=== PATIENT | male | born 1960 | race Caucasian/White ===

== ENCOUNTER 2017-03-26 12:17 | Emergency (ER) | payer OTHER ==
[2017-03-26] MEDS ORDERED: Zofran 4 MG/2 ML VIAL IV ONE (12:34)
[2017-03-26] MEDS ORDERED: BABY ASPIRIN 81 MG CHEW PO ONE (12:34)
[2017-03-26] MEDS ORDERED: MORPHINE SULFATE 2 MG INJ IV ONE (12:34)
[2017-03-26] MEDS ORDERED: Zofran 4 MG/2 ML VIAL ONE (12:39)
[2017-03-26] MEDS ORDERED: Sodium Chloride 0.9% 1000 ML 1,000 ML ONE (12:39)
[2017-03-26] MEDS ORDERED: MORPHINE SULFATE 2 MG INJ ONE (12:39)
--- NOTE | 2017-03-26 12:41 | ERPHSYRPT ---
- History of Present Illness Time Seen by Provider: 03/26/17 12:24 Historian: patient, other (friend) Exam Limitations: no limitations Patient Subjective Stated Complaint: states had pain at suture site midchest ( post bypass 3 weeks ago) pain with movement and breathing. states had racing HR but it stopped after taking medications Triage Nursing Assessment: suture sites clean and dry. alert and oriented. states movment and breathing makes pain worse. no racing of his heart on arrival. denies SOB. lungs clear bilateral. no swelling to lower extemities. Physician History: 21 days post op CABG 6 vessel bypass; ran out of post op pain meds last night; now has chest/lung pain from incision and breathing; not angina type pain; no SOB but hurst when breathes; no cough; no fever or chills; no travel or exposures; no hemoptosis; no sore throat; no orthopnea; no leg painsdeveloped palpatations when got up this am with pusle rate increased to 150+; resolved before arriving here Timing/Duration: today (worse), yesterday (onset last pm), intermittent (02/26), gradual onset, improved (now 08/29) Activities at Onset: activity (worsens), rest Quality: aching, burning, dullness Location: central Chest Pain Radiation: no radiation Severity of Pain-Max: severe Severity of Pain-Current: mild (worsens) Modifying Factors: Improves With: breathing (worsens), exertion (worsens becasue breathes heavier), movement (aggravates), palpation (aggravates) Associated Symptoms: hurts to breathe Prior Chest Pain/Cardiac Workup: recent hospitalization (CABG 6 vessel ) Nitro Today/Relief: no nitro taken today Aspirin Treatment Today: no aspirin today, provided by ED Allergies/Adverse Reactions: No Known Drug Allergies Allergy (Verified 03/26/17 12:36) Home Medications: Amiodarone HCl 200 mg [Cordarone 200 MG] 200 mg PO DAILY 03/26/17 [History ] Apixaban [Eliquis] 5 mg PO BID 03/26/17 [History] Aspirin 81 gm Chew [Baby Aspirin 81 mg Chew] 81 mg PO DAILY 03/26/17 [ History] Insulin Glargine [Lantus Insulin] 90 unit SQ DAILY 03/26/17 [History] Metformin HCl 1,000 mg PO BID 03/26/17 [History] Metoprolol Tartrate 25 mg [Lopressor 25MG Tab] 25 mg PO BID 03/26/17 [ History] Oxycodone / APAP 10/325 mg [Oxycodone-Acetaminophen 10-325] 2 tab PO QIDPRN PRN 03/26/17 [History] PANTOPRAZOLE 40 mg Tablet [Protonix 40MG Tablet] 40 mg PO QAM 03/26/17 [ History] Sennosides/Docusate Sodium [Senna-Docusate Sodium Tablet] 1 each PO DAILY [History] Hx Tetanus, Diphtheria Vaccination/Date Given: Yes Hx Influenza Vaccination/Date Given: Yes Hx Pneumococcal Vaccination/Date Given: Yes - Review of Systems Constitutional: No Symptoms Eyes: No Symptoms Ears, Nose, & Throat: No Symptoms Respiratory: No Cough, No Cyanosis, No Dyspnea, No Wheezing Cardiac: Chest Pain, Palpitations (this am), No Edema, No Syncope Abdominal/Gastrointestinal: No Symptoms Genitourinary Symptoms: No Symptoms Musculoskeletal: No Symptoms Skin: Other (healing sternal incisionfo rCABG 21 days ago) Neurological: No Symptoms Psychological: No Symptoms Endocrine: No Symptoms Hematologic/Lymphatic: No Symptoms Immunological/Allergic: No Symptoms - Past Medical History Pertinent Past Medical History: Yes Cardiac History: Coronary Artery Disease, High Cholesterol Endocrine Medical History: Diabetes Type II - Past Surgical History Past Surgical History: Yes Cardiac: CABG Other Surgical History: FACIAL RECONSTRUCTION bypass x 6 3 weeks ago - Social History Smoking Status: Never smoker How long have you smoked: 25 Exposure to second hand smoke: Yes Alcohol Use: Socially Drug Use: none Patient Lives Alone: No Significant Family History: heart disease, diabetes, hypertension - Nursing Vital Signs Nursing Vital Signs: Initial Vital Signs Temperature 97.9 F 03/26/17 12:19 Pulse Rate 81 03/26/17 12:19 Respiratory Rate 20 03/26/17 12:19 Blood Pressure 113/64 03/26/17 12:19 O2 Sat by Pulse Oximetry 98 03/26/17 12:19 Pain Scale Pain Intensity 0 - Physical Exam General Appearance: moderate distress, alert Eye Exam: PERRL/EOMI, eyes nml inspection, No photophobia Ears, Nose, Throat Exam: normal ENT inspection, TMs normal, pharynx normal, moist mucous membranes Neck Exam: normal inspection, non-tender, supple, full range of motion, No meningismus, No JVD Respiratory Exam: chest tenderness, airway intact, diminished breath sounds, crackles/rales (bibasilar), No normal breath sounds, No respiratory distress, No prolonged expirations, No rhonchi, No wheezing, No pleural rub Cardiovascular Exam: regular rate/rhythm, normal heart sounds, normal peripheral pulses, capillary refill <2 sec, No friction rub, No edema Gastrointestinal/Abdomen Exam: soft, normal bowel sounds, No tenderness, No distention, No guarding, No pulsatile mass, No organomegaly Rectal Exam: deferred Back Exam: normal inspection, normal range of motion, No CVA tenderness, No vertebral tenderness, No rash Extremity Exam: normal inspection, normal range of motion, No que's sign, No pedal edema Neurologic Exam: alert, oriented x 3, cooperative, 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, normal mood/affect, nml cerebellar function, nml station & gait Skin Exam: normal color, warm, dry, No rash, No cyanosis SpO2 Interpretation: normal SpO2: 98 Oxygen Delivery: Room Air - Course Nursing assessment & vital signs reviewed: Yes EKG Interpreted by Me: RATE (79), Sinus Rhythm, Right [place] Deviation, Right Bundle Branch Block, Ischemic ST-T changes (inverted in II,III and AVF and ), Non-specific ST Changes (flattened in V3-v6) Rhythm Strip: Rate (76), Normal Sinus Rhythm - Radiology Exams Chest X-ray Interpretation: Reviewed by me, Teleradiologist Report, Nml Heart Size, Infiltrates (and or atelectasis RM/RL lobe and LLL wiht effusion) Ordered Tests: Active Orders 24 hr Category Date Time Status Chemical Educator STAT Care 03/26/17 12:34 Active EKG-ER Only STAT Care 03/26/17 12:34 Active Pulse Oximetry (ED) STAT Care 03/26/17 12:34 Active CHEST 1 VIEW (PORTABLE) Stat Exams 03/26/17 12:34 Completed CBC W DIFF Stat Lab 03/26/17 12:38 Completed CMP Stat Lab 03/26/17 12:38 Completed NT PRO BNP Stat Lab 03/26/17 12:38 Completed PROTIME WITH INR Stat Lab 03/26/17 12:38 Completed TROPONIN Q3H Lab 03/26/17 12:45 Completed TROPONIN Q3H Lab 03/26/17 14:43 Completed TROPONIN Q3H Lab 03/26/17 18:45 Ordered TROPONIN Q3H Lab 03/26/17 21:45 Ordered TROPONIN Q3H Lab 03/27/17 00:45 Ordered Medication Summary Generic Name Dose Route Start Last Admin Trade Name Freq PRN Reason Stop Dose Admin Sodium Chloride 1,000 mls @ 50 mls/hr 03/26/17 12:45 03/26/17 12:45 Sodium Chloride 0.9% 1000 Ml IV 04/25/17 12:44 50 mls/hr .Q20H GASTON Administration Discontinued Medications Generic Name Dose Route Start Last Admin Trade Name Freq PRN Reason Stop Dose Admin Aspirin 324 mg 03/26/17 12:34 03/26/17 12:47 Baby Aspirin 81 Mg Chew PO 03/26/17 12:35 324 mg STAT ONE Administration Morphine Sulfate 2 mg 03/26/17 12:34 03/26/17 12:45 Morphine Sulfate 2 Mg Inj IV 03/26/17 12:35 2 mg STAT ONE Administration Morphine Sulfate Confirm 03/26/17 12:39 Morphine Sulfate 2 Mg Inj Administered 03/26/17 12:40 Dose 2 mg .ROUTE .STK-MED ONE Ondansetron HCl 4 mg 03/26/17 12:34 03/26/17 12:46 Zofran 4 Mg/2 Ml Vial IV 03/26/17 12:35 4 mg STAT ONE Administration Ondansetron HCl Confirm 03/26/17 12:39 Zofran 4 Mg/2 Ml Vial Administered 03/26/17 12:40 Dose 4 mg .ROUTE .STK-MED ONE Lab/Rad Data: Laboratory Result Diagrams 03/26/17 12:38 03/26/17 12:38 Laboratory Results 03/26/17 03/26/17 03/26/17 Range/Units 14:43 12:45 12:38 WBC (4.0-10.5) K/mm3 RBC (4.1-5.6) M/mm3 Hgb (12.5-18.0) gm/dl Hct (42-50) % MCV (78-100) fl MCH (26-32) pg MCHC (32-36) g/dl RDW (11.5-14.0) % Plt Count (150-450) K/mm3 MPV (6-9.5) fl Gran % (36.0-66.0) % Lymphocytes % (24.0-44.0) % Monocytes % (0.0-12.0) % Eosinophils % (0.00-5.0) % Basophils % (0.0-0.4) % Basophils # (0-0.4) INR 1.61 (0.8-3.0) Sodium (136-145) mEq/L Potassium (3.5-5.1) mEq/L Chloride (98-107) mEq/L Carbon Dioxide (21-32) mEq/L Anion Gap (5-15) MEQ/L BUN (9-20) mg/dL Creatinine (0.55-1.30) mg/dl Estimated GFR ML/MIN Glucose (70-110) MG/DL Calcium (8.5-10.1) mg/dL Total Bilirubin (0.2-1.0) mg/dL AST (15-37) U/L ALT (12-78) U/L Alkaline Phosphatase (46-116) U/L Troponin I 0.393 H* 0.429 H* (0.000-0.056) ng/ml NT-Pro-B Natriuret Pep (0-125) pg/ml Serum Total Protein (6.4-8.2) gm/dL Albumin (3.4-5.0) g/dL 03/26/17 03/26/17 Range/Units 12:38 12:38 WBC 10.7 H (4.0-10.5) K/mm3 RBC 3.73 L (4.1-5.6) M/mm3 Hgb 10.4 L (12.5-18.0) gm/dl Hct 33.1 L (42-50) % MCV 88.7 (78-100) fl MCH 27.8 (26-32) pg MCHC 31.4 L (32-36) g/dl RDW 13.8 (11.5-14.0) % Plt Count 517 H (150-450) K/mm3 MPV 10.5 H (6-9.5) fl Gran % 82.7 H (36.0-66.0) % Lymphocytes % 8.4 L (24.0-44.0) % Monocytes % 6.8 (0.0-12.0) % Eosinophils % 1.6 (0.00-5.0) % Basophils % 0.5 (0.0-0.4) % Basophils # 0.05 (0-0.4) INR (0.8-3.0) Sodium 135 L (136-145) mEq/L Potassium 5.2 H (3.5-5.1) mEq/L Chloride 99 (98-107) mEq/L Carbon Dioxide 25.7 (21-32) mEq/L Anion Gap 15.7 H (5-15) MEQ/L BUN 19 (9-20) mg/dL Creatinine 0.93 (0.55-1.30) mg/dl Estimated GFR > 60 ML/MIN Glucose 265 H (70-110) MG/DL Calcium 9.4 (8.5-10.1) mg/dL Total Bilirubin 0.60 (0.2-1.0) mg/dL AST 27 (15-37) U/L ALT 22 (12-78) U/L Alkaline Phosphatase 101 (46-116) U/L Troponin I (0.000-0.056) ng/ml NT-Pro-B Natriuret Pep 2062 H (0-125) pg/ml Serum Total Protein 7.4 (6.4-8.2) gm/dL Albumin 3.2 L (3.4-5.0) g/dL reviewed - Progress Progress: improved (after mdeds), re-examined (after meds) Air Movement: fair Progress Note: 03/26/17 13:17 will monitor get eKG; cxr; give meds and check labs and rehceck 03/26/17 13:34 INR 1.61; BS 265; renal fx ok; Na 135 lo; K+= 5.2 slight hi; pBNP up at 2061; troponin up at 0.429 will need to repeat and see if changing as recent CABG may be cause; CXR show RML and RLL infiltrate and or atelectasis and new LLL with effusinon as wellCBC shows mild post op anemia of 10.4/ 33.1 with wbc 10.7 and plt up at 517; EKG show CRRRB with NSR of 79 and T wave inversion II,III and AVF that is slightly mor e prominent then prior ekg done 03-11-17; rechecked and pain is gone and patient resting quietly; will give ntg 03/26/17 13:46 rechecked and pain free; no symptoms; vs remain good; discussed labs and rechecking troponin 03/26/17 15:46 repeat troponin decreasing; consulted with his CV surgeon, Dr Iglesias. Discussed meds and labs and ekgs and will release for him to follow in the office Thursday; he called in an Rx for the patient; treatment plan and instructions discussed with patient and . 03/26/17 15:49 03/26/17 15:50 He has adequate pain meds until Thursday Blood Culture(s) Obtained: No Antibiotics given: No Counseled pt/family regarding: lab results, diagnosis, need for follow-up, rad results - Departure Time of Disposition: 15:48 Departure Disposition: Home Clinical Impression: post op chest pain CABG, Heart palpitations Condition: Stable Critical Care Time: Yes Critical Care Time(excluding separately billable procedures): 30-74 minutes Referrals: ELLY STAUFFER [Primary Care Provider] - Instructions: Chest Pain Additional Instructions: continue meds; get Rx filled; keep appt with Dr Iglesias on Thursday Follow-up with family doctor as directed. Call for appointment. Return if any problems. If you smoke please stop. Call or follow up with your family doctor for assistance if you need it to stop. Please wear your seatbelt when driving. Have a nice day. Thank you for allowing us to participate in your care today. :o) Dr Brendan Kim
[2017-03-26 12:43] LABS: BASOPHIL % 0.5 % (0.0-0.4); Eosinophil % 1.6 % (0.00-5.0); Granulocytes % 82.7 % (36.0-66.0); Lymphocytes % 8.4 % (24.0-44.0); Mean Cell Volume 88.7 fl (78-100); Mean Platelet Volume 10.5 fl (6-9.5); Monocytes % 6.8 % (0.0-12.0); Platelet Count 517 K/mm3 (150-450); Red Blood Count 3.73 M/mm3 (4.1-5.6); Red Cell Distribution Width 13.8 % (11.5-14.0); White Blood Count 10.7 K/mm3 (4.0-10.5)
[2017-03-26] MEDS ORDERED: Sodium Chloride 0.9% 1000 ML 1,000 ML IV SCH (12:45)
[2017-03-26 12:47] LABS: Mean Corpuscular Hemoglobin 27.8 pg (26-32)
[2017-03-26 13:04] LABS: INR 1.61 (0.8-3.0)
--- NOTE | 2017-03-26 13:05 | XRAY ---
Indication: Chest pain. Status post cardiothoracic surgery 3 weeks ago. Comparison: February 15, 2014. Portable chest demonstrates interval CABG surgery without cardiomegaly or vascular congestion. New left base infiltrate/atelectasis/effusion and new right mid to lower lung infiltrate/atelectasis.
[2017-03-26 13:11] LABS: ALBUMIN 3.2 g/dL (3.4-5.0); ALKALINE PHOSPHATASE 101 U/L (46-116); ANION GAP 15.7 MEQ/L (5-15); BLOOD UREA NITROGEN 19 mg/dL (9-20); CHLORIDE 99 mEq/L (98-107); Carbon Dioxide 25.7 mEq/L (21-32); Glucose 265 MG/DL (70-110); Potassium 5.2 mEq/L (3.5-5.1); SGOT/AST 27 U/L (15-37); SGPT/ALT 22 U/L (12-78); SODIUM 135 mEq/L (136-145); Total Protein 7.4 gm/dL (6.4-8.2)
[2017-03-26 15:38] VITALS: BP 110/65; PULSE 82; O2SAT 98
[2017-03-26] MEDS ORDERED: BABY ASPIRIN 81 MG CHEW ONE (20:12)
== END 2017-03-26 16:02 | disposition home or self-care (01) ==
LOC: ED 12:17
DX: R07.9 Chest pain, unspecified (principal); Z95.1 Presence of aortocoronary bypass graft; R00.2 Palpitations; I51.9 Heart disease, unspecified; I10 Essential (primary) hypertension
CPT/HCPCS: 36000; 36415; 71010; 80053; 83880; 84484; 85025; 85610; 93005; 93041; 96360; 96361; 96374; 96375; 99284; 99285; J2270; J2405; A9270-GY

== ENCOUNTER 2017-11-27 10:37 | Emergency (ER) | payer OTHER ==
[2017-11-27] MEDS ORDERED: Ketamine HCl 50 MG/ML IV ONE (10:38)
[2017-11-27] MEDS ORDERED: DIPRIVAN 200 MG/20 ML IV ONE (10:38)
--- NOTE | 2017-11-27 11:12 | ERPHSYRPT ---
- History of Present Illness Time Seen by Provider: 11/27/17 11:09 Source: patient Patient Subjective Stated Complaint: Chicken stuck in throat since yesterday, no pain. Triage Nursing Assessment: Pt presents to the ED with complaints of chicken stuck in throat. Pt states onset yesterday. Pt states he is unable to pass any liquid down throat. No distress noted. Pt states no pain at this time. Skin PWD. Physician History: unable to swallow since 4pm yesterday, believes chicken is stuck, speech fluent , no emesis, no shortness of breath, similar episode last year, nad Allergies/Adverse Reactions: No Known Drug Allergies Allergy (Verified 06/01/17 22:21) Home Medications: Apixaban [Eliquis] 5 mg PO BID 03/26/17 [History] Aspirin 81 gm Chew [Baby Aspirin 81 mg Chew] 81 mg PO DAILY 03/26/17 [ History] Insulin Glargine [Lantus Insulin] 45 unit SQ DAILY 03/26/17 [History] Metformin HCl 1,000 mg PO BID 03/26/17 [History] Metoprolol Tartrate 25 mg [Lopressor 25MG Tab] 25 mg PO BID 03/26/17 [ History] Atorvastatin Calcium 80 mg PO DAILY 06/01/17 [History] Insulin Lispro [Humalog] 10 unit SQ TID 06/01/17 [History] Amiodarone HCl 200 mg [Cordarone 200 MG] 200 mg PO DAILY 11/27/17 [History ] Lisinopril 5 mg [Zestril 5 MG] 2.5 mg PO DAILY 11/27/17 [History] Hx Tetanus, Diphtheria Vaccination/Date Given: No Hx Influenza Vaccination/Date Given: No Hx Pneumococcal Vaccination/Date Given: No Immunizations Up to Date: No - Review of Systems Constitutional: No Fever Eyes: No Symptoms Ears, Nose, & Throat: No Mouth Pain, No Mouth Swelling Respiratory: No Symptoms Cardiac: No Symptoms Abdominal/Gastrointestinal: No Abdominal Pain, No Vomiting Neurological: No Dizziness - Past Medical History Pertinent Past Medical History: Yes Cardiac History: Coronary Artery Disease, High Cholesterol Endocrine Medical History: Diabetes Type II Other Medical History: 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 - Past Surgical History Past Surgical History: Yes Cardiac: CABG Other Surgical History: FACIAL RECONSTRUCTION bypass x 6 03/04/17 - Social History Smoking Status: Former smoker How long have you smoked: 25 Exposure to second hand smoke: No Alcohol Use: Socially Drug Use: none Patient Lives Alone: No Significant Family History: heart disease, diabetes, hypertension - Nursing Vital Signs Nursing Vital Signs: Initial Vital Signs Temperature 97.9 F 11/27/17 10:43 Pulse Rate 82 11/27/17 10:43 Respiratory Rate 16 11/27/17 10:43 Blood Pressure 124/73 11/27/17 10:43 O2 Sat by Pulse Oximetry 97 11/27/17 10:43 Pain Scale Pain Intensity 3 - Physical Exam General Appearance: no apparent distress Eye Exam: eyes nml inspection Ears, Nose, Throat Exam: pharynx normal, moist mucous membranes Neck Exam: normal inspection Respiratory Exam: No respiratory distress Cardiovascular Exam: regular rate/rhythm Gastrointestinal/Abdomen Exam: soft, No tenderness Extremity Exam: normal range of motion Neurologic Exam: alert, oriented x 3, cooperative Skin Exam: warm, dry SpO2 Interpretation: normal SpO2: 97 Oxygen Delivery: Room Air - Course Nursing assessment & vital signs reviewed: Yes Ordered Tests: Active Orders 24 hr Category Date Time Status IV Insertion STAT Care 11/27/17 11:17 Active CBC W DIFF Stat Lab 11/27/17 11:05 Completed CMP Stat Lab 11/27/17 11:05 Completed PROTIME WITH INR Stat Lab 11/27/17 11:05 Completed PTT Stat Lab 11/27/17 11:05 Completed Lab/Rad Data: Laboratory Result Diagrams 11/27/17 11:05 11/27/17 11:05 Laboratory Results 11/27/17 11/27/17 11/27/17 Range/Units 11:05 11:05 11:05 WBC 6.9 (4.0-10.5) K/mm3 RBC 4.10 (4.1-5.6) M/mm3 Hgb 12.4 L (12.5-18.0) gm/dl Hct 37.0 L (42-50) % MCV 90.2 (78-100) fl MCH 30.2 (26-32) pg MCHC 33.5 (32-36) g/dl RDW 13.3 (11.5-14.0) % Plt Count 190 (150-450) K/mm3 MPV 12.4 H (6-9.5) fl Gran % 76.7 H (36.0-66.0) % Eos # (Auto) 0.14 (0-0.5) Absolute Lymphs (auto) 0.98 L (1.0-4.6) Absolute Monos (auto) 0.45 (0.0-1.3) Lymphocytes % 14.3 L (24.0-44.0) % Monocytes % 6.6 (0.0-12.0) % Eosinophils % 2.0 (0.00-5.0) % Basophils % 0.4 (0.0-0.4) % Absolute Granulocytes 5.25 (1.4-6.9) Basophils # 0.03 (0-0.4) PT 13.3 H (8.83-12.87) SECONDS INR 1.14 (0.8-3.0) APTT 39.6 H (24.1-36.1) SECONDS Sodium 140 (137-145) mmol/L Potassium 5.0 (3.5-5.1) mmol/L Chloride 104 (98-107) mmol/L Carbon Dioxide 23 (22-30) mmol/L Anion Gap 17.8 H (5-15) MEQ/L BUN 21 H (9-20) mg/dL Creatinine 1.04 (0.66-1.25) mg/dL Estimated GFR > 60.0 ML/MIN Glucose 225 H (74-106) mg/dL Calcium 10.1 (8.4-10.2) mg/dL Total Bilirubin 1.00 (0.2-1.3) mg/dL AST 30 (17-59) U/L ALT 34 (0-50) U/L Alkaline Phosphatase 107 (38-126) U/L Serum Total Protein 7.7 (6.3-8.2) g/dL Albumin 4.6 (3.5-5.0) g/dL - Progress Progress: unchanged - Departure Time of Disposition: 13:38 Departure Disposition: Transfer Clinical Impression: Esophageal foreign body Qualifiers: Encounter type: initial encounter Qualified Code(s): T18.108A - Unspecified foreign body in esophagus causing other injury, initial encounter Condition: Stable Critical Care Time: No Referrals: ELLY BLANCHARD [Primary Care Provider] -
[2017-11-27 11:39] LABS: BASOPHIL % 0.4 % (0.0-0.4); Basophil (Absolute #) 0.03 (0-0.4); Eosinophil (Absolute #) 0.14 (0-0.5); Granulocyte Absolute (ANC) 5.25 (1.4-6.9); Granulocytes % 76.7 % (36.0-66.0); Hemoglobin 12.4 gm/dl (12.5-18.0); Lymphocyte (Absolute #) 0.98 (1.0-4.6); Lymphocytes % 14.3 % (24.0-44.0); Mean Cell Volume 90.2 fl (78-100); Mean Corpuscular Hemoglobin 30.2 pg (26-32); Mean Corpuscular Hgb Concent. 33.5 g/dl (32-36); Mean Platelet Volume 12.4 fl (6-9.5); Monocyte (Absolute #) 0.45 (0.0-1.3); Monocytes % 6.6 % (0.0-12.0); Platelet Count 190 K/mm3 (150-450); Red Cell Distribution Width 13.3 % (11.5-14.0); White Blood Count 6.9 K/mm3 (4.0-10.5)
[2017-11-27 11:52] LABS: INR 1.14 (0.8-3.0)
[2017-11-27 11:55] LABS: PTT 39.6 SECONDS (24.1-36.1)
[2017-11-27 11:57] LABS: ALBUMIN 4.6 g/dL (3.5-5.0); ALKALINE PHOSPHATASE 107 U/L (38-126); ANION GAP 17.8 MEQ/L (5-15); BLOOD UREA NITROGEN 21 mg/dL (9-20); CHLORIDE 104 mmol/L (98-107); Calcium 10.1 mg/dL (8.4-10.2); Carbon Dioxide 23 mmol/L (22-30); Creatinine 1 1.04 mg/dL (0.66-1.25); Glucose 225 mg/dL (74-106); SGOT/AST 30 U/L (17-59); SGPT/ALT 34 U/L (0-50); SODIUM 140 mmol/L (137-145); Total Protein 7.7 g/dL (6.3-8.2)
[2017-11-27] MEDS ORDERED: Lactated Ringers 1,000 ML IV ONE (14:24)
[2017-11-27] MEDS ORDERED: Lactated Ringers 1,000 ML IV SCH (14:30)
[2017-11-27 14:35] VITALS: BP 135/85
[2017-11-27 14:55] VITALS: PULSE 77; O2SAT 99
--- NOTE | 2017-11-30 11:54 | OP ---
SURGERY DATE/TIME: 11/27/2017 1525 PREOPERATIVE DIAGNOSIS: Lodged foreign body of esophagus. POSTOPERATIVE DIAGNOSIS: Lodged foreign body of esophagus. PROCEDURES: 1) EGD with reduction of food bolus. 2) Balloon dilatation from size 44 to 48 SURGEON: Alejandro Thao M.D. ANESTHESIA: MAC by Isaac Silver CRNA. COMPLICATIONS: None. CONDITION: Stable. INDICATION: A 57 year-old requiring evaluation. He has lodged food bolus. He said he has had this several times at home but it has always passed but this one did not. He is still spitting up material. DESCRIPTION OF PROCEDURE: He was taken to endoscopy. MAC sedation provided. Scope introduced. The food bolus was lodged at the gastroesophageal junction. It was a large piece of chicken. It did happen to be stringy and was slightly fractured on top and at least four large pieces were able to be removed. This certainly downsized it substantially. There was absolutely nothing else in the esophagus. All the spit had been removed and was fairly clear and clean. There had been absolutely no trouble with the airway. It was then started to be bagged. It was small enough as the bag was placed on and it was actually pushed into the stomach. The bag removed. The area inspected. Fundus, body, antrum, pylorus, duodenal bulb satisfactory. Scope withdrawn. Gastroesophageal junction about size 44. A large size balloon dilator with three phases was placed. Phase 1 and 2 did not dilate at all. At the start of stage 3 the balloon did kick in. It was well centered on the stricture. It was brought up to full strength stage 3 and it set there for 1 minute. I believe this enlarged the aperture from about 44 to 48. There was no bleeding. There were no signs of any major tear or issue. It looked good. The scope withdrawn. The patient tolerated the procedure well. It is anticipated that he will be discharged this evening. I believe he is successfully dilated today.
== END 2017-11-27 16:32 | disposition home or self-care (01) ==
LOC: ED 10:37
PROC: 0D748ZZ Dilation of Esophagogastric Junction, Via Natural or Artificial Opening Endoscopic (ICD-10-PCS; principal; 2017-11-27)
DX: T18.128A Food in esophagus causing other injury, initial encounter (principal); E11.9 Type 2 diabetes mellitus without complications; Z79.4 Long term (current) use of insulin; Z79.82 Long term (current) use of aspirin; Z79.899 Other long term (current) drug therapy
CPT/HCPCS: 36000; 36415; 80053; 85025; 85610; 85730; 96360; 99140; 99284; 99285; C1726; J2704

== ENCOUNTER 2018-01-27 17:30 | Emergency (ER) | payer OTHER | END 2018-01-27 18:04 | disposition left against medical advice (07) | LOC: ED 17:30 | DX: Z53.21 Procedure and treatment not carried out due to patient leaving prior to being seen by health care provider (principal) | CPT/HCPCS: 99281 ==

== ENCOUNTER 2019-08-14 15:08 | Emergency (ER) | payer OTHER ==
[2019-08-14 15:19] VITALS: O2SAT 98
[2019-08-14] MEDS ORDERED: NEOSYNEPHRINE 0.5% NASAL SPRAY/DROPS ONE (15:24)
[2019-08-14] MEDS ORDERED: ARZOL Silver Nitrate Applicator TP ONE ×2 (15:29→15:32)
[2019-08-14] MEDS ORDERED: NEOSYNEPHRINE 0.5% NASAL SPRAY/DROPS NS ONE (15:31)
--- NOTE | 2019-08-14 15:59 | ERPHSYRPT ---
- History of Present Illness Time Seen by Provider: 08/14/19 15:33 Source: patient, family Exam Limitations: no limitations Patient Subjective Stated Complaint: Pt states "I have had a nose bleed since 9 am this morning. Triage Nursing Assessment: Pt presented alert and oriented X 3, skin pwd Pt ambualtes with an upright steady gait, able to speak in clear full sentences. Pt right nares has slight bleeding noted, dry out around nares. Physician History: 58 years old male on Eliquis, obstructive sleep apnea on CPAP not using any humidifier presented in the ER was her altered right nasal bleed around 9 AM today. It is a slow dribbling, mild in amount, stopped after applying pressure and comes back. blood is bright red with a few clots earlier. Denies swelling blood or blood going back into his throat.denies any chest pain palpitations or shortness of breath. No abdominal pain nausea or vomiting. Timing/Duration: abrupt onset, this morning ENT Location: nose (right nares) Prearrival Treatment: squeezing nostrils Modifying Factors: Improves With: coughing Associated Symptoms: No cough, No dizziness Allergies/Adverse Reactions: No Known Drug Allergies Allergy (Verified 06/01/17 22:21) Home Medications: Apixaban [Eliquis] 5 mg PO BID 03/26/17 [History] Aspirin 81 gm Chew [Baby Aspirin 81 mg Chew] 81 mg PO DAILY 03/26/17 [ History] Insulin Glargine [Lantus Insulin] 45 unit SQ DAILY 03/26/17 [History] Metformin HCl 1,000 mg PO BID 03/26/17 [History] Metoprolol Tartrate 25 mg [Lopressor 25MG Tab] 25 mg PO BID 03/26/17 [ History] Insulin Lispro [Humalog] 10 unit SQ TID 06/01/17 [History] Amiodarone HCl 200 mg [Cordarone 200 MG] 200 mg PO DAILY 11/27/17 [History ] Hx Tetanus, Diphtheria Vaccination/Date Given: No Hx Influenza Vaccination/Date Given: Yes Hx Pneumococcal Vaccination/Date Given: No Immunizations Up to Date: Yes - Review of Systems Constitutional: No Symptoms Eyes: No Symptoms Ears, Nose, & Throat: Nose Pain, Nose Congestion Respiratory: No Symptoms Cardiac: No Symptoms Abdominal/Gastrointestinal: No Symptoms Musculoskeletal: No Symptoms Skin: No Symptoms Psychological: No Symptoms Endocrine: No Symptoms Hematologic/Lymphatic: No Symptoms Immunological/Allergic: No Symptoms - Past Medical History Pertinent Past Medical History: Yes Cardiac History: Coronary Artery Disease, High Cholesterol Endocrine Medical History: Diabetes Type II Other Medical History: 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 - Past Surgical History Past Surgical History: Yes Cardiac: CABG Other Surgical History: FACIAL RECONSTRUCTION bypass x 6 03/04/17 - Social History Smoking Status: Current some day smoker How long have you smoked: years Exposure to second hand smoke: Yes Alcohol Use: Socially Drug Use: none Patient Lives Alone: No Significant Family History: heart disease, diabetes, hypertension - Nursing Vital Signs Nursing Vital Signs: Initial Vital Signs Temperature 97.8 F 08/14/19 15:14 Pulse Rate 68 08/14/19 15:14 Respiratory Rate 18 08/14/19 15:14 Blood Pressure 142/77 08/14/19 15:14 O2 Sat by Pulse Oximetry 98 08/14/19 15:14 Pain Scale Pain Intensity 2 - Physical Exam General Appearance: no apparent distress, alert Eye Exam: bilateral eye: normal inspection, PERRL, EOMI Ear Exam: bilateral ear: auricle normal, canal normal Nasal Exam: dried blood (right nares with few lesion in the septum) Neck Exam: normal inspection, non-tender, supple Cardiovascular/Respiratory Exam: chest non-tender, regular rate/rhythm Abdominal Exam: non-tender Neurologic Exam: alert, oriented x 3, cooperative Skin Exam: normal color (typical for her L.) SpO2 Interpretation: normal SpO2: 98 O2 Delivery: Room Air (bowel) - Course Nursing assessment & vital signs reviewed: Yes Ordered Tests: Medication Summary Discontinued Medications Generic Name Dose Route Start Last Admin Trade Name Nigelq PRN Reason Stop Dose Admin Hydrocodone Bitart/Acetaminophen 1 tab 08/14/19 16:45 08/14/19 16:49 [place] 10/325 Mg Tablet PO 08/14/19 16:46 1 tab STAT ONE Administration Hydrocodone Bitart/Acetaminophen Confirm 08/14/19 16:48 [place] 10/325 Mg Tablet Administered 08/14/19 16:49 Dose 1 tab .ROUTE .STK-MED ONE Amoxicillin/Clavulanate Potassium 875 mg 08/14/19 16:46 08/14/19 16:52 Augmentin 875-125 Tablet PO 08/14/19 16:47 875 mg STAT ONE Administration Amoxicillin/Clavulanate Potassium Confirm 08/14/19 16:51 Augmentin 875-125 Tablet Administered 08/14/19 16:52 Dose 875 mg .ROUTE .STK-MED ONE Bacitracin Zinc 0.9 gm 08/14/19 16:29 08/14/19 16:50 Baciguent Packet TP 08/14/19 16:30 0.9 gm STAT ONE Administration Bacitracin Zinc Confirm 08/14/19 16:28 Baciguent Packet Administered 08/14/19 16:29 Dose 1 gm .ROUTE .STK-MED ONE Phenylephrine HCl Confirm 08/14/19 15:24 Neosynephrine 0.5% Nasal [place]/Drops Administered 08/14/19 15:25 Dose 15 ml .ROUTE .STK-MED ONE Phenylephrine HCl 15 ml 08/14/19 15:31 08/14/19 16:49 Neosynephrine 0.5% Nasal [place]/Drops NS 08/14/19 15:32 15 ml STAT ONE Administration Silver Nitrate Confirm 08/14/19 15:29 Arzol Silver Nitrate Applicator Administered 08/14/19 15:30 Dose 1 pkt TP .STK-MED ONE Silver Nitrate 1 pkt 08/14/19 15:32 08/14/19 16:50 [place] Silver Nitrate Applicator TP 08/14/19 15:33 1 pkt STAT ONE Administration - Progress Progress: improved, re-examined Progress Note: I have made them go his nose fairly hard periods small lesion soreness in the septum. Which are cauterized. Prior to that I have applied Bill-Synephrine- soaked cotton ball for a few minutes. I have observed him here in the ER with rebleeding & Rhino Rocket was placed then which he tolerated well he well with no bleeding afterwords almost an hour. Recommended outpatient followup with primary care in ENT for reevaluation and Rhino Rocket removal. Recommended using humidifier. If the signs symptoms or worsening needing antibiotic he seems understanding. 08/14/19 17:12 Counseled pt/family regarding: diagnosis, need for follow-up - Departure Departure Disposition: Home Clinical Impression: Epistaxis Condition: Stable Critical Care Time: Yes Referrals: ELLY BLANCHARD [Primary Care Provider] - Follow Up with PCP (1-2 days for re evaluation) SKIP QUEEN MD [NON-STAFF PHY W/O PRIVILEGES] - (1-2 days , call for appointment ) Instructions: Nosebleeds (DC) Additional Instructions: followup with primary care and ENT for further evaluation and Rhino Rocket removal. Use humidified oxygen with CPAP. It has bleeding again apply firm pressure for 5 minutes and if continues to bleed return to ER.
[2019-08-14] MEDS ORDERED: BACIGUENT PACKET ONE (16:28)
[2019-08-14] MEDS ORDERED: BACIGUENT PACKET TP ONE (16:29)
[2019-08-14] MEDS ORDERED: Norco 10/325 MG Tablet PO ONE (16:45)
[2019-08-14] MEDS ORDERED: Augmentin 875-125 Tablet PO ONE (16:46)
[2019-08-14] MEDS ORDERED: Norco 10/325 MG Tablet ONE (16:48)
[2019-08-14] MEDS ORDERED: Augmentin 875-125 Tablet ONE (16:51)
[2019-08-14 17:46] VITALS: BP 155/77; PULSE 68
== END 2019-08-14 17:45 | disposition home or self-care (01) ==
LOC: ED 15:08
DX: R04.0 Epistaxis (principal); Z79.01 Long term (current) use of anticoagulants; G47.33 Obstructive sleep apnea (adult) (pediatric); Z79.899 Other long term (current) drug therapy; I25.810 Atherosclerosis of coronary artery bypass graft(s) without angina pectoris; E78.00 Pure hypercholesterolemia, unspecified; E11.9 Type 2 diabetes mellitus without complications; Z79.4 Long term (current) use of insulin
CPT/HCPCS: 99283; A9270-GY

== ENCOUNTER 2025-04-08 13:10 | Observation (INO) | payer MEDICARE ==
[2025-04-08] MEDS ORDERED: MORPHINE SULFATE 2 MG INJ ONE (13:52)
[2025-04-08] MEDS: Compazine 10 MG/2 ML IV ONE ×2 (13:53→20:27)
[2025-04-08] MEDS ORDERED: Compazine 10 MG/2 ML ONE (13:53)
--- NOTE | 2025-04-08 13:53 | ERPHSYRPT ---
- History of Present Illness Time Seen by Provider: 04/08/25 13:40 Historian: patient Physician History: This is a 64-year-old white male with a history of diabetes who presents to the emergency room with 3 days of left lower quadrant pain nausea and vomiting. Patient describes the pain simply has pain nonprovoked palliated there is no associated melena hematochezia or hematemesis patient denied any dysuria pyuria or hematuria. Patient states she is currently being treated for a bad infection with "too really powerful antibiotics". Last bowel movement was yesterday. Patient denied any flank pain dysuria or pyuria. Allergies/Adverse Reactions: [id number] Reductase Inhibitor Allergy (Verified 04/08/25 13:31) Home Medications: Apixaban [Eliquis] 5 mg PO BID 03/26/17 [History] Aspirin 81 gm Chew [Baby Aspirin 81 mg Chew] 81 mg PO DAILY 03/26/17 [History] Insulin Glargine [Lantus Insulin] 45 unit SQ DAILY 03/26/17 [History] Metformin HCl 1,000 mg PO BID 03/26/17 [History] Metoprolol Tartrate 25 mg [Lopressor 25MG Tab] 25 mg PO BID 03/26/17 [History] Insulin Lispro [Humalog] 10 unit SQ TID 06/01/17 [History] Amiodarone HCl 200 mg [Cordarone 200 MG] 200 mg PO DAILY 11/27/17 [History] Hx Tetanus, Diphtheria Vaccination/Date Given: No Hx Influenza Vaccination/Date Given: Yes Hx Pneumococcal Vaccination/Date Given: No - Review of Systems Constitutional: No Fever, No Chills Eyes: No Symptoms Ears, Nose, & Throat: No Symptoms Respiratory: No Cough, No Dyspnea Cardiac: No Chest Pain, No Edema, No Syncope Abdominal/Gastrointestinal: Abdominal Pain, Nausea, Vomiting, Diarrhea Genitourinary Symptoms: No Dysuria Musculoskeletal: No Back Pain, No Neck Pain Skin: No Rash Neurological: No Dizziness, No Focal Weakness, No Sensory Changes Psychological: No Symptoms Endocrine: No Symptoms All Other Systems: Reviewed and Negative - Past Medical History Pertinent Past Medical History: Yes Cardiac History: Coronary Artery Disease, High Cholesterol Endocrine Medical History: Diabetes Type II Other Medical History: 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 - Past Surgical History Past Surgical History: Yes Cardiac: CABG Other Surgical History: FACIAL RECONSTRUCTION bypass x 6 03/04/17 Significant Family History: heart disease, diabetes, hypertension - Social History Smoking Status: Current some day smoker How long have you smoked: years Exposure to second hand smoke: Yes Alcohol Use: Socially Drug Use: none Patient Lives Alone: No - Nursing Vital Signs Nursing Vital Signs: Initial Vital Signs Temperature 97.2 F 04/08/25 13:11 Pulse Rate 98 H 04/08/25 13:11 Respiratory Rate 22 04/08/25 13:11 Blood Pressure 122/83 04/08/25 13:11 O2 Sat by Pulse Oximetry 95 04/08/25 13:11 Pain Scale Pain Intensity 0 - Physical Exam General Appearance: no apparent distress, alert Eye Exam: PERRL/EOMI, eyes nml inspection Ears, Nose, Throat Exam: normal ENT inspection, pharynx normal, moist mucous membranes Neck Exam: normal inspection, non-tender, supple, full range of motion Respiratory Exam: normal breath sounds, lungs clear, No respiratory distress Cardiovascular Exam: regular rate/rhythm, normal heart sounds Gastrointestinal/Abdomen Exam: soft, normal bowel sounds, other (There is left lower quadrant tenderness), No tenderness, No mass, No guarding, No rebound Back Exam: normal inspection, normal range of motion, No CVA tenderness, No vertebral tenderness Extremity Exam: normal inspection, normal range of motion, pelvis stable Neurologic Exam: alert, oriented x 3, cooperative, normal mood/affect, nml cerebellar function, sensation nml, No motor deficits Skin Exam: normal color, warm, dry Ordered Tests: Active Orders 24 hr Category Date Time Status ABDOMEN AND PELVIS W CONTRAST [CT] Stat Exams 04/08/25 13:49 Completed CBC W DIFF Stat Lab 04/08/25 13:45 Completed CMP Stat Lab 04/08/25 13:45 Completed LIPASE Stat Lab 04/08/25 13:45 Completed Lactic Acid Stat Lab 04/08/25 13:48 Completed Lactic Acid Stat Lab 04/08/25 16:03 Received POCT GLUCOSE Stat Lab 04/08/25 13:25 Completed UA W/RFX UR CULTURE Stat Lab 04/08/25 13:49 Completed VENOUS BLOOD GAS Stat Lab 04/08/25 15:39 Ordered Medication Summary Generic Name Dose Route Start Last Admin Trade Name Freq PRN Reason Stop Dose Admin Dextrose/Sodium Chloride 1,000 mls @ 100 mls/hr 04/08/25 16:30 Dextrose 5% -0.45 Nacl 1000 Ml IV 05/08/25 16:29 .Q10H [place] Discontinued Medications Generic Name Dose Route Start Last Admin Trade Name Jordon PRN Reason Stop Dose Admin Sodium Chloride 1,000 mls @ 999 mls/hr 04/08/25 13:48 04/08/25 15:09 Sodium Chloride 0.9% 1000 Ml IV 04/08/25 14:48 Infused .Q1H1M STA Infusion Sodium Chloride Confirm 04/08/25 13:53 Sodium Chloride 0.9% 1000 Ml Administered 04/08/25 13:54 Dose 1,000 mls @ ud .ROUTE .STK-MED ONE Morphine Sulfate 2 mg 04/08/25 13:48 04/08/25 13:54 Morphine Sulfate 2 Mg/Ml Inj IV 04/08/25 13:49 2 mg STAT ONE Administration Morphine Sulfate Confirm 04/08/25 13:52 Morphine Sulfate 2 Mg/Ml Inj Administered 04/08/25 13:53 Dose 2 mg .ROUTE .STK-MED ONE Prochlorperazine Edisylate 10 mg 04/08/25 13:48 04/08/25 13:53 Prochlorperazine Edisylate 10 Mg/2 Ml Vial IV 04/08/25 13:49 10 mg STAT ONE Administration Prochlorperazine Edisylate Confirm 04/08/25 13:53 Prochlorperazine Edisylate 10 Mg/2 Ml Vial Administered 04/08/25 13:54 Dose 10 mg .ROUTE .STK-MED ONE Lab/Rad Data: Laboratory Result Diagrams 04/08/25 13:45 04/08/25 13:45 Laboratory Results 04/08/25 04/08/25 04/08/25 Range/Units 13:49 13:48 13:45 WBC (4.23-9.07) x10^3/uL RBC (4.63-6.08) x10^6/uL Hgb (13.7-17.5) g/dL Hct (40.1-51.0) % MCV (79.0-92.2) fL MCH (25.7-32.2) pg MCHC (32.3-36.5) g/dL RDW (11.6-14.4) % Plt Count (163-337) x10^3/uL MPV (9.4-12.4) fL Gran % (34.0-67.9) % Immature Gran % (Auto) (0.001-0.429) % Nucleat RBC Rel Count (0.00-0.2) % Eos # (Auto) (0.04-0.54) x10^3/uL Immature Gran # (Auto) (0.001-0.031) x10^3u/L Absolute Lymphs (auto) (1.32-3.57) x10^3/uL Absolute Monos (auto) (0.30-0.82) x10^3/uL Absolute Nucleated RBC (0.00-0.012) x10^3u/L Lymphocytes % (21.8-53.1) % Monocytes % (5.3-12.2) % Eosinophils % (0.8-7.0) % Basophils % (0.2-1.2) % Absolute Granulocytes (1.78-5.38) x10^3/uL Basophils # (0.01-0.08) x10^3/uL Sodium 139 (135-145) mmol/L Potassium 5.4 H (3.5-5.1) mmol/L Chloride 98 (98-107) mmol/L Carbon Dioxide 25 (22-30) mmol/L Anion Gap 21.5 H (5-15) MEQ/L BUN 42 H (9-20) mg/dL Creatinine 1.96 H (0.66-1.25) mg/dL Estimated GFR 37.0 ML/MIN Glucose 249 H (74-106) mg/dL POC Glucometer (74 to 106) mg/dL Lactic Acid 3.9 H (0.4-2.0) Calcium 11.3 H (8.4-10.2) mg/dL Total Bilirubin 1.50 H (0.2-1.3) mg/dL AST 49 (17-59) U/L ALT 64 H (0-50) U/L Alkaline Phosphatase 122 (38-126) U/L Serum Total Protein 9.5 H (6.3-8.2) g/dL Albumin 5.4 H (3.5-5.0) g/dL Lipase 109 (23-300) U/L Urine Color Yellow (Yellow) Urine Appearance Clear (Clear) Urine pH 7.0 (4.6-8.0) Ur Specific [place] >=1.030 A (1.005-1.030) Urine Protein 100 A (Negative) Urine Glucose (UA) 500 A (Negative) mg/dL Urine Ketones 15 A (Negative) Urine Blood Negative (Negative) Urine Nitrite Negative (Negative) Urine Bilirubin Negative (Negative) Urine Urobilinogen 0.2 (0.2) mg/dL Ur Leukocyte Esterase Negative (Negative) U Hyaline Cast (Auto) NONE SEEN (0-2) /LPF Urine Microscopic RBC 0-2 (0-5) /HPF Urine Microscopic WBC 0-2 (0-5) /HPF Ur Epithelial Cells None Seen (None Seen) /HPF Urine Bacteria None Seen (None Seen) /HPF Urine Culture Reflexed NO (NO) 04/08/25 04/08/25 Range/Units 13:45 13:25 WBC 10.9 H (4.23-9.07) x10^3/uL RBC 4.55 L (4.63-6.08) x10^6/uL Hgb 13.8 (13.7-17.5) g/dL Hct 40.3 (40.1-51.0) % MCV 88.6 (79.0-92.2) fL MCH 30.3 (25.7-32.2) pg MCHC 34.2 (32.3-36.5) g/dL RDW 13.5 (11.6-14.4) % Plt Count 256 (163-337) x10^3/uL MPV 11.5 (9.4-12.4) fL Gran % 84.5 H (34.0-67.9) % Immature Gran % (Auto) 0.6 H (0.001-0.429) % Nucleat RBC Rel Count 0.0 (0.00-0.2) % Eos # (Auto) 0.01 L (0.04-0.54) x10^3/uL Immature Gran # (Auto) 0.07 H (0.001-0.031) x10^3u/L Absolute Lymphs (auto) 0.98 L (1.32-3.57) x10^3/uL Absolute Monos (auto) 0.56 (0.30-0.82) x10^3/uL Absolute Nucleated RBC 0.00 (0.00-0.012) x10^3u/L Lymphocytes % 9.0 L (21.8-53.1) % Monocytes % 5.2 L (5.3-12.2) % Eosinophils % 0.1 L (0.8-7.0) % Basophils % 0.6 (0.2-1.2) % Absolute Granulocytes 9.18 H (1.78-5.38) x10^3/uL Basophils # 0.07 (0.01-0.08) x10^3/uL Sodium (135-145) mmol/L Potassium (3.5-5.1) mmol/L Chloride (98-107) mmol/L Carbon Dioxide (22-30) mmol/L Anion Gap (5-15) MEQ/L BUN (9-20) mg/dL Creatinine (0.66-1.25) mg/dL Estimated GFR ML/MIN Glucose (74-106) mg/dL POC Glucometer 235 H (74 to 106) mg/dL Lactic Acid (0.4-2.0) Calcium (8.4-10.2) mg/dL Total Bilirubin (0.2-1.3) mg/dL AST (17-59) U/L ALT (0-50) U/L Alkaline Phosphatase (38-126) U/L Serum Total Protein (6.3-8.2) g/dL Albumin (3.5-5.0) g/dL Lipase (23-300) U/L Urine Color (Yellow) Urine Appearance (Clear) Urine pH (4.6-8.0) Ur Specific [place] (1.005-1.030) Urine Protein (Negative) Urine Glucose (UA) (Negative) mg/dL Urine Ketones (Negative) Urine Blood (Negative) Urine Nitrite (Negative) Urine Bilirubin (Negative) Urine Urobilinogen (0.2) mg/dL Ur Leukocyte Esterase (Negative) U Hyaline Cast (Auto) (0-2) /LPF Urine Microscopic RBC (0-5) /HPF Urine Microscopic WBC (0-5) /HPF Ur Epithelial Cells (None Seen) /HPF Urine Bacteria (None Seen) /HPF Urine Culture Reflexed (NO) - Progress Progress Note: The patient had a CAT scan of the abdomen pelvis remarkable only for gallstones patient has CBC remarkable for white count 10.9 chemistry was remarkable for potassium 5.4 a bicarb of 25 and a anion gap of 16 as well as a BUN/creatinine of 42/2.0 with glucose of 249 urine was positive for ketones only and lactic acid was 3.9. In the emergency room patient was given fluid bolus of crystalloid once we be At the lab results I started her on insulin infusion I did not add potassium because her potassium is ready 5.4. The patient I think has a biphasic or triphasic acid-base reaction I think the she has an high anion gap metabolic acidosis as well as a metabolic alkalosis which is why the bicarb is 25. I have started the patient on insulin drip and I will speak to hospitalist admit the patient differential diagnosis gastritis duodenitis enterocolitis DKA hyperglycemia 04/08/25 16:31 - Departure Departure Disposition: In-patient Admission Clinical Impression: DKA (diabetic ketoacidosis), Abdominal pain Condition: Fair Critical Care Time: No Referrals: DIMAS VALENCIA [Primary Care Provider, INTERNAL MEDICINE] - Follow up/PCP as directed
[2025-04-08] MEDS: MORPHINE SULFATE 2 MG INJ IV ONE (13:54)
[2025-04-08 14:11] LABS: BASOPHIL % 0.6 % (0.2-1.2); Basophil (Absolute #) 0.07 x10^3/uL (0.01-0.08); Eosinophil (Absolute #) 0.01 x10^3/uL (0.04-0.54); Hematocrit 40.3 % (40.1-51.0); Hemoglobin 13.8 g/dL (13.7-17.5); IMMATURE GRAN # 0.07 x10^3u/L (0.001-0.031); IMMATURE GRAN % 0.6 % (0.001-0.429); Lymphocyte (Absolute #) 0.98 x10^3/uL (1.32-3.57); Mean Corpuscular Hemoglobin 30.3 pg (25.7-32.2); Mean Corpuscular Hgb Concent. 34.2 g/dL (32.3-36.5); Monocyte (Absolute #) 0.56 x10^3/uL (0.30-0.82); NUCLEATED RBC # 0.00 x10^3u/L (0.00-0.012); NUCLEATED RBC % 0.0 % (0.00-0.2); Platelet Count 256 x10^3/uL (163-337); Red Blood Count 4.55 x10^6/uL (4.63-6.08); White Blood Count 10.9 x10^3/uL (4.23-9.07)
[2025-04-08 14:29] LABS: Calcium 11.3 mg/dL (8.4-10.2); Carbon Dioxide 25.0 mmol/L (22-30); Creatinine 1 1.96 mg/dL (0.66-1.25); EST GLOMERULAR FILTRATION RATE 37.0 ML/MIN; Glucose 249.0 mg/dL (74-106); Potassium 5.4 mmol/L (3.5-5.1); SGOT/AST 49.0 U/L (17-59); SGPT/ALT 64.0 U/L (0-50); Total Protein 9.5 g/dL (6.3-8.2)
--- NOTE | 2025-04-08 15:45 | XRAY ---
CLINICAL HISTORY: llq pain COMPARISON: None. TECHNIQUE: Contrast-enhanced CT of the abdomen and pelvis was performed, with the following protocol: axial images with, and reconstructed coronal and sagittal images. 80cc isovue 370 Intravenous contrast was administered. One of the following dose reduction techniques was utilized for this exam: automated exposure control, adjustment of the mA and/or kV according to patient size, and use of iterative reconstruction. FINDINGS: Abdomen: Liver: Normal in size, shape, and density. No focal lesions, cysts, or masses are identified. Hepatic vasculature and biliary ducts are unremarkable. Gallbladder and Biliary System: The gallbladder shows dense sludge/concretions. No signs of inflammation. Requires US correlation. The common bile duct is normal in caliber without dilation. Pancreas: The pancreatic head, body, and tail are visualized and appear normal in size and density. No pancreatic masses or calcifications are noted. The pancreatic duct is not dilated. Spleen: Normal in size, shape, and density. Scattered foci of calcification are present. No splenic lesions or masses are identified. Appendix: The appendix is normal in size without periappendiceal fat stranding and without an appendicolith. No evidence of appendiceal abscess or perforation. Kidneys and Adrenal Glands: Both kidneys are normal in size, shape, and position. Cortical thickness is within normal limits. Bilateral simple renal cysts (type I) are present. No renal calculi or hydronephrosis. Adrenal glands are unremarkable with no evidence of masses or hyperplasia. Pelvis: Urinary Bladder: Normal in contour and wall thickness. No intraluminal lesions are identified. Prostate: Normal in size and contour. No focal lesions or masses are identified. Rectum and Sigmoid Colon: Normal wall thickness and no evidence of mass. Peritoneal and Retroperitoneal Structures: No free fluid or abnormal fluid collections are identified within the abdomen or pelvis. No lymphadenopathy is noted. Bowel: The visualized bowel loops are normal in caliber and appearance. No evidence of bowel obstruction or wall thickening. Few scattered colonic diverticula are present. Small hiatal hernia is identified. Bones and Soft Tissues: The visualized bones show degenerative changes. IMPRESSION: 1. No acute abdominal pathology is noted. 2. Cholelithiasis. 3. The rest of the findings are described above. Electronically Signed by: Edin Lewis MD. (04/08/2025 15:43:33 EDT)
[2025-04-08 15:56] LABS: Glucose, Urine 500 mg/dL (Negative); Protein,Urine Dip 100 (Negative); RBC 0-2 /HPF (0-5); WBC 0-2 /HPF (0-5)
[2025-04-08 16:48] LABS: VBG BASE EXCESS 3.9 (-2.0-2.0); VBG CARBOXYHEMOGLOBIN 1.4 % T HGB (0.0-6.9); VBG FIO2 21.0 %; VBG HCO3- 28.5 meq/L (22-28); VBG HEMOGLOBIN 13.0; VBG O2 SATURATION 55.1 (95-100); VBG PCO2 42.0 mm/Hg (42-55); VBG PO2 28.0 mm/Hg (25-40); VBG POTASSIUM 5.1 (3.5-5.1)
[2025-04-08] MEDS ORDERED: MYXREDLIN 100 UNIT/100 ML BAG 100 UNIT/100 ML PLAST..BAG IV ONE (18:14)
[2025-04-08] MEDS: MYXREDLIN 100 UNIT/100 ML BAG 100 UNIT/100 ML PLAST..BAG IV PRN (18:26)
[2025-04-08] MEDS: Dextrose 5% -0.45 NaCl 1000 ML 1,000 ML IV SCH (18:28)
[2025-04-08 21:00] LABS: Calcium 10.1 mg/dL (8.4-10.2); Carbon Dioxide 27.0 mmol/L (22-30); Creatinine 1 1.79 mg/dL (0.66-1.25); EST GLOMERULAR FILTRATION RATE 41.3 ML/MIN; Glucose 184.0 mg/dL (74-106); Potassium 4.5 mmol/L (3.5-5.1)
[2025-04-08] MEDS: Lantus Insulin SQ ONE (22:02)
[2025-04-08] MEDS: POTASSIUM CHLORIDE 20 mEq IN WATER 100ML 20 MEQ/100 ML BAG IV ONE (22:02)
[2025-04-08] MEDS ORDERED: HUMALOG SQ PRN (23:00)
[2025-04-08] MEDS: ZYVOX PO SCH (23:40)
[2025-04-09] MEDS: Reglan 10 MG/2 ML IV PRN (02:19)
[2025-04-09 03:03] LABS: Hematocrit 37.9 % (40.1-51.0); Hemoglobin 12.6 g/dL (13.7-17.5); Mean Corpuscular Hemoglobin 30.1 pg (25.7-32.2); Mean Corpuscular Hgb Concent. 33.2 g/dL (32.3-36.5); Platelet Count 230 x10^3/uL (163-337); Red Blood Count 4.19 x10^6/uL (4.63-6.08); White Blood Count 8.8 x10^3/uL (4.23-9.07)
[2025-04-09 03:25] LABS: Calcium 9.8 mg/dL (8.4-10.2); Carbon Dioxide 24.0 mmol/L (22-30); Creatinine 1 1.54 mg/dL (0.66-1.25); EST GLOMERULAR FILTRATION RATE 49.4 ML/MIN; Glucose 146.0 mg/dL (74-106); Potassium 4.1 mmol/L (3.5-5.1); SGOT/AST 41.0 U/L (17-59); SGPT/ALT 50.0 U/L (0-50); Total Protein 8.4 g/dL (6.3-8.2)
[2025-04-09 09:03] LABS: Calcium 9.7 mg/dL (8.4-10.2); Carbon Dioxide 25.0 mmol/L (22-30); Creatinine 1 1.41 mg/dL (0.66-1.25); EST GLOMERULAR FILTRATION RATE 55.0 ML/MIN; Glucose 207.0 mg/dL (74-106); Potassium 4.4 mmol/L (3.5-5.1); SGOT/AST 46.0 U/L (17-59); SGPT/ALT 54.0 U/L (0-50); Total Protein 8.4 g/dL (6.3-8.2)
[2025-04-09] MEDS: PLAVIX Tablet PO SCH (09:56)
[2025-04-09] MEDS: Cordarone 200 MG PO SCH (09:57)
[2025-04-09] MEDS: Flomax 0.4 MG PO SCH (09:57)
[2025-04-09] MEDS: HUMALOG SQ PRN (09:59)
[2025-04-09] MEDS ORDERED: NON-FORMULARY ITEM (Icosapent Ethyl [Vascepa] 1 GM Capsule) PO SCH (10:00)
[2025-04-09] MEDS ORDERED: CEFPODOXIME PROXETIL 100 MG PO SCH (10:00)
[2025-04-09] MEDS ORDERED: PLAVIX Tablet PO SCH (10:00)
[2025-04-09] MEDS ORDERED: Lantus Insulin SQ SCH (10:00)
[2025-04-09] MEDS ORDERED: Cordarone 200 MG PO SCH (10:00)
[2025-04-09] MEDS ORDERED: MEDICATION INTERVENTION MC SCH ×2 (10:30→10:45)
[2025-04-09] MEDS: Lantus Insulin SQ SCH (10:48)
[2025-04-09] MEDS: ZYVOX PO SCH (10:48)
--- NOTE | 2025-04-09 12:21 | PCM.NOTE ---
Date and Time: 04/09/25 1208 Subjective Assessment: Mr. Garcia is a 54-year-old gentleman with a history of recurrent diabetic ketoacidosis, paroxysmal atrial fibrillation, coronary artery disease status post-CABG , and recent MRSA infection of right great toe who presented with persistent nausea and vomiting after starting linezolid and cefpodoxime right great toe MRSA infection. He was found to be in diabetic ketoacidosis and admitted for management. He received fluid resuscitation and insulin infusion, with transition to basal-bolus therapy following resolution of acidosis. His nausea and vomiting have improved, and renal function has returned to baseline. CT imaging incidentally noted gallstones. He remains stable on chronic therapies for atrial fibrillation and CAD. 04/09/25: Met with patient bedside. Endorses much improvement since admission. Patient states he has mild nausea but otherwise no complaints. He reports that he was taken off his Lantus following a recent hospitalization at the beginning of the month for right great toe MRSA infection and his blood glucose levels have been consistently over 250. He has been experiencing nausea and a poor appetite. He was contributing the nausea to his linezolid. - Review of Systems Constitutional: No Symptoms Eyes: No Symptoms Ears, Nose, & Throat: No Symptoms Respiratory: No Symptoms Cardiac: No Symptoms Abdominal/Gastrointestinal: No Symptoms Genitourinary Symptoms: No Symptoms Musculoskeletal: No Symptoms Skin: No Symptoms Neurological: No Symptoms Psychological: No Symptoms Endocrine: No Symptoms Hematologic/Lymphatic: No Symptoms Immunological/Allergic: No Symptoms Objective Exam General Appearance: no apparent distress Neurologic Exam: alert, oriented x 3, cooperative Skin Exam: normal color, warm, dry Wound Assessment: Skin/Wound Assessment Wound/Incision Assessment Start: 04/08/25 21:24 Text: Status: Active Freq: Q6H Protocol: [facility] 04[facility]09[facility]25 08[facility]00 [facility] (Rec: 04/09/25 09:21 [facility] [id number]) Wound/Incision Assessment Right Medial Toe Wound Assessment Shift Assessment Wound Type Healing wound Wound Stage Non Pressure Wound Dressing Status Dry & Intact Drainage Amount Minimal Drainage Description Serosanguineous Wound Bed Greatest Portion Dusky Red Primary Dressing xeroform Secondary Dressing Gauze Roll/Wrap Wound Photo Photo Taken No Comment: photo taken on admission in paper chart Eye Exam: PERRL Ears, Nose, Throat Exam: normal ENT inspection Neck Exam: normal inspection Respiratory Exam: normal breath sounds, lungs clear Cardiovascular Exam: regular rate/rhythm, normal heart sounds Gastrointestinal/Abdomen Exam: soft, normal bowel sounds Extremity Exam: normal inspection Back Exam: normal inspection Male Genitalia Exam: deferred Rectal Exam: deferred Objective Data Vital Signs: Vital Signs - 24 hr Temp Pulse Resp BP BP Pulse Ox 04/09/25 10:20 98 H 16 153/94 97 04/09/25 09:01 92 H 10 L 141/89 98 04/09/25 08:00 98.1 F 97 H 136/84 98 04/09/25 07:00 93 H 13 148/90 99 04/09/25 06:09 87 11 L 163/91 97 04/09/25 05:00 97.8 F 92 H 14 159/88 98 04/09/25 04:00 109 H 16 155/85 91 L 04/09/25 03:08 94 H 12 163/93 98 04/09/25 02:00 93 H 16 169/86 98 04/09/25 01:00 90 20 135/83 94 L 04/09/25 00:01 94 H 04/09/25 00:00 98.2 F 94 H 20 140/74 96 04/08/25 23:00 89 15 174/100 99 04/08/25 22:00 95 H 19 152/63 98 04/08/25 21:00 93 H 14 143/89 04/08/25 20:10 86 04/08/25 20:04 97.6 F 86 15 157/92 100 04/08/25 20:01 97.6 F 86 15 157/92 100 04/08/25 19:30 94 H 13 130/86 04/08/25 19:00 94 H 12 139/88 95 04/08/25 18:30 92 H 10 L 157/87 04/08/25 18:00 92 H 12 151/99 04/08/25 17:30 16 154/79 04/08/25 17:00 98 H 11 L 137/72 04/08/25 16:30 93 H 10 L 146/86 04/08/25 16:24 92 H 8 L 157/97 100 04/08/25 14:30 148/86 04/08/25 14:18 93 H 11 L 146/87 04/08/25 14:10 94 H 19 04/08/25 14:02 98 H 17 04/08/25 13:30 97 H 18 127/83 04/08/25 13:11 97.2 F 98 H 22 122/83 95 Pain Assessment - Last Documented Pain Intensity 0 Pain Scale Used 0-10 Pain Scale Intake and Output: Intake & Output 04/07/25 04/08/25 04/09/25 04/10/25 11:59 11:59 11:59 11:59 Intake Total 2738 Output Total 2300 Balance 438 Weight 98.2 kg Lab Results: Lab Results-Last 24 Hours 04/08/25 04/08/25 04/08/25 Range/Units 13:25 13:45 13:45 WBC 10.9 H (4.23-9.07) x10^3/uL RBC 4.55 L (4.63-6.08) x10^6/uL Hgb 13.8 (13.7-17.5) g/dL Hct 40.3 (40.1-51.0) % MCV 88.6 (79.0-92.2) fL MCH 30.3 (25.7-32.2) pg MCHC 34.2 (32.3-36.5) g/dL RDW 13.5 (11.6-14.4) % Plt Count 256 (163-337) x10^3/uL MPV 11.5 (9.4-12.4) fL Gran % 84.5 H (34.0-67.9) % Immature Gran % (Auto) 0.6 H (0.001-0.429) % Nucleat RBC Rel Count 0.0 (0.00-0.2) % Eos # (Auto) 0.01 L (0.04-0.54) x10^3/uL Immature Gran # (Auto) 0.07 H (0.001-0.031) x10^3u/L Absolute Lymphs (auto) 0.98 L (1.32-3.57) x10^3/uL Absolute Monos (auto) 0.56 (0.30-0.82) x10^3/uL Absolute Nucleated RBC 0.00 (0.00-0.012) x10^3u/L Lymphocytes % 9.0 L (21.8-53.1) % Monocytes % 5.2 L (5.3-12.2) % Eosinophils % 0.1 L (0.8-7.0) % Basophils % 0.6 (0.2-1.2) % Absolute Granulocytes 9.18 H (1.78-5.38) x10^3/uL Basophils # 0.07 (0.01-0.08) x10^3/uL pO2/FiO2 Ratio % VBG pH (7.32-7.42) VBG pCO2 at Pat Temp (42-55) mm/Hg VBG pO2 at Pat Temp (25-40) mm/Hg VBG HCO3 (22-28) meq/L VBG O2 Sat (Alex) (95-100) VBG Base Excess (-2.0-2.0) VBG Hemoglobin VBG Carboxyhemoglobin (0.0-6.9) % T HGB POC Potassium (3.5-5.1) Sodium 139 (135-145) mmol/L Potassium 5.4 H (3.5-5.1) mmol/L Chloride 98 (98-107) mmol/L Carbon Dioxide 25 (22-30) mmol/L Anion Gap 21.5 H (5-15) MEQ/L BUN 42 H (9-20) mg/dL Creatinine 1.96 H (0.66-1.25) mg/dL Estimated GFR 37.0 ML/MIN Glucose 249 H (74-106) mg/dL POC Glucometer 235 H (74 to 106) mg/dL Hemoglobin A1c (4.5-6.0) % Lactic Acid (0.4-2.0) Calcium 11.3 H (8.4-10.2) mg/dL Total Bilirubin 1.50 H (0.2-1.3) mg/dL AST 49 (17-59) U/L ALT 64 H (0-50) U/L Alkaline Phosphatase 122 (38-126) U/L Serum Total Protein 9.5 H (6.3-8.2) g/dL Albumin 5.4 H (3.5-5.0) g/dL Prealbumin (17.6-36.0) mg/dL Lipase 109 (23-300) U/L Urine Color (Yellow) Urine Appearance (Clear) Urine pH (4.6-8.0) Ur Specific Marshall (1.005-1.030) Urine Protein (Negative) Urine Glucose (UA) (Negative) mg/dL Urine Ketones (Negative) Urine Blood (Negative) Urine Nitrite (Negative) Urine Bilirubin (Negative) Urine Urobilinogen (0.2) mg/dL Ur Leukocyte Esterase (Negative) U Hyaline Cast (Auto) (0-2) /LPF Urine Microscopic RBC (0-5) /HPF Urine Microscopic WBC (0-5) /HPF Ur Epithelial Cells (None Seen) /HPF Urine Bacteria (None Seen) /HPF Urine Culture Reflexed (NO) 04/08/25 04/08/25 04/08/25 Range/Units 13:48 13:49 15:39 WBC (4.23-9.07) x10^3/uL RBC (4.63-6.08) x10^6/uL Hgb (13.7-17.5) g/dL Hct (40.1-51.0) % MCV (79.0-92.2) fL MCH (25.7-32.2) pg MCHC (32.3-36.5) g/dL RDW (11.6-14.4) % Plt Count (163-337) x10^3/uL MPV (9.4-12.4) fL Gran % (34.0-67.9) % Immature Gran % (Auto) (0.001-0.429) % Nucleat RBC Rel Count (0.00-0.2) % Eos # (Auto) (0.04-0.54) x10^3/uL Immature Gran # (Auto) (0.001-0.031) x10^3u/L Absolute Lymphs (auto) (1.32-3.57) x10^3/uL Absolute Monos (auto) (0.30-0.82) x10^3/uL Absolute Nucleated RBC (0.00-0.012) x10^3u/L Lymphocytes % (21.8-53.1) % Monocytes % (5.3-12.2) % Eosinophils % (0.8-7.0) % Basophils % (0.2-1.2) % Absolute Granulocytes (1.78-5.38) x10^3/uL Basophils # (0.01-0.08) x10^3/uL pO2/FiO2 Ratio 21.0 % VBG pH 7.44 H (7.32-7.42) VBG pCO2 at Pat Temp 42 (42-55) mm/Hg VBG pO2 at Pat Temp 28 (25-40) mm/Hg VBG HCO3 28.5 H (22-28) meq/L VBG O2 Sat (Alex) 55.1 L (95-100) VBG Base Excess 3.9 H (-2.0-2.0) VBG Hemoglobin 13.0 VBG Carboxyhemoglobin 1.4 (0.0-6.9) % T HGB POC Potassium 5.1 (3.5-5.1) Sodium (135-145) mmol/L Potassium (3.5-5.1) mmol/L Chloride (98-107) mmol/L Carbon Dioxide (22-30) mmol/L Anion Gap (5-15) MEQ/L BUN (9-20) mg/dL Creatinine (0.66-1.25) mg/dL Estimated GFR ML/MIN Glucose (74-106) mg/dL POC Glucometer (74 to 106) mg/dL Hemoglobin A1c (4.5-6.0) % Lactic Acid 3.9 H (0.4-2.0) Calcium (8.4-10.2) mg/dL Total Bilirubin (0.2-1.3) mg/dL AST (17-59) U/L ALT (0-50) U/L Alkaline Phosphatase (38-126) U/L Serum Total Protein (6.3-8.2) g/dL Albumin (3.5-5.0) g/dL Prealbumin (17.6-36.0) mg/dL Lipase (23-300) U/L Urine Color Yellow (Yellow) Urine Appearance Clear (Clear) Urine pH 7.0 (4.6-8.0) Ur Specific Marshall >=1.030 A (1.005-1.030) Urine Protein 100 A (Negative) Urine Glucose (UA) 500 A (Negative) mg/dL Urine Ketones 15 A (Negative) Urine Blood Negative (Negative) Urine Nitrite Negative (Negative) Urine Bilirubin Negative (Negative) Urine Urobilinogen 0.2 (0.2) mg/dL Ur Leukocyte Esterase Negative (Negative) U Hyaline Cast (Auto) NONE SEEN (0-2) /LPF Urine Microscopic RBC 0-2 (0-5) /HPF Urine Microscopic WBC 0-2 (0-5) /HPF Ur Epithelial Cells None Seen (None Seen) /HPF Urine Bacteria None Seen (None Seen) /HPF Urine Culture Reflexed NO (NO) 04/08/25 04/08/25 04/08/25 Range/Units 16:03 19:41 20:43 WBC (4.23-9.07) x10^3/uL RBC (4.63-6.08) x10^6/uL Hgb (13.7-17.5) g/dL Hct (40.1-51.0) % MCV (79.0-92.2) fL MCH (25.7-32.2) pg MCHC (32.3-36.5) g/dL RDW (11.6-14.4) % Plt Count (163-337) x10^3/uL MPV (9.4-12.4) fL Gran % (34.0-67.9) % Immature Gran % (Auto) (0.001-0.429) % Nucleat RBC Rel Count (0.00-0.2) % Eos # (Auto) (0.04-0.54) x10^3/uL Immature Gran # (Auto) (0.001-0.031) x10^3u/L Absolute Lymphs (auto) (1.32-3.57) x10^3/uL Absolute Monos (auto) (0.30-0.82) x10^3/uL Absolute Nucleated RBC (0.00-0.012) x10^3u/L Lymphocytes % (21.8-53.1) % Monocytes % (5.3-12.2) % Eosinophils % (0.8-7.0) % Basophils % (0.2-1.2) % Absolute Granulocytes (1.78-5.38) x10^3/uL Basophils # (0.01-0.08) x10^3/uL pO2/FiO2 Ratio % VBG pH (7.32-7.42) VBG pCO2 at Pat Temp (42-55) mm/Hg VBG pO2 at Pat Temp (25-40) mm/Hg VBG HCO3 (22-28) meq/L VBG O2 Sat (Alex) (95-100) VBG Base Excess (-2.0-2.0) VBG Hemoglobin VBG Carboxyhemoglobin (0.0-6.9) % T HGB POC Potassium (3.5-5.1) Sodium (135-145) mmol/L Potassium (3.5-5.1) mmol/L Chloride (98-107) mmol/L Carbon Dioxide (22-30) mmol/L Anion Gap (5-15) MEQ/L BUN (9-20) mg/dL Creatinine (0.66-1.25) mg/dL Estimated GFR ML/MIN Glucose (74-106) mg/dL POC Glucometer 184 H 168 H (74 to 106) mg/dL Hemoglobin A1c (4.5-6.0) % Lactic Acid 1.7 (0.4-2.0) Calcium (8.4-10.2) mg/dL Total Bilirubin (0.2-1.3) mg/dL AST (17-59) U/L ALT (0-50) U/L Alkaline Phosphatase (38-126) U/L Serum Total Protein (6.3-8.2) g/dL Albumin (3.5-5.0) g/dL Prealbumin (17.6-36.0) mg/dL Lipase (23-300) U/L Urine Color (Yellow) Urine Appearance (Clear) Urine pH (4.6-8.0) Ur Specific Marshall (1.005-1.030) Urine Protein (Negative) Urine Glucose (UA) (Negative) mg/dL Urine Ketones (Negative) Urine Blood (Negative) Urine Nitrite (Negative) Urine Bilirubin (Negative) Urine Urobilinogen (0.2) mg/dL Ur Leukocyte Esterase (Negative) U Hyaline Cast (Auto) (0-2) /LPF Urine Microscopic RBC (0-5) /HPF Urine Microscopic WBC (0-5) /HPF Ur Epithelial Cells (None Seen) /HPF Urine Bacteria (None Seen) /HPF Urine Culture Reflexed (NO) 04/08/25 04/08/25 04/08/25 Range/Units 20:45 21:33 22:37 WBC (4.23-9.07) x10^3/uL RBC (4.63-6.08) x10^6/uL Hgb (13.7-17.5) g/dL Hct (40.1-51.0) % MCV (79.0-92.2) fL MCH (25.7-32.2) pg MCHC (32.3-36.5) g/dL RDW (11.6-14.4) % Plt Count (163-337) x10^3/uL MPV (9.4-12.4) fL Gran % (34.0-67.9) % Immature Gran % (Auto) (0.001-0.429) % Nucleat RBC Rel Count (0.00-0.2) % Eos # (Auto) (0.04-0.54) x10^3/uL Immature Gran # (Auto) (0.001-0.031) x10^3u/L Absolute Lymphs (auto) (1.32-3.57) x10^3/uL Absolute Monos (auto) (0.30-0.82) x10^3/uL Absolute Nucleated RBC (0.00-0.012) x10^3u/L Lymphocytes % (21.8-53.1) % Monocytes % (5.3-12.2) % Eosinophils % (0.8-7.0) % Basophils % (0.2-1.2) % Absolute Granulocytes (1.78-5.38) x10^3/uL Basophils # (0.01-0.08) x10^3/uL pO2/FiO2 Ratio % VBG pH (7.32-7.42) VBG pCO2 at Pat Temp (42-55) mm/Hg VBG pO2 at Pat Temp (25-40) mm/Hg VBG HCO3 (22-28) meq/L VBG O2 Sat (Alex) (95-100) VBG Base Excess (-2.0-2.0) VBG Hemoglobin VBG Carboxyhemoglobin (0.0-6.9) % T HGB POC Potassium (3.5-5.1) Sodium 139 (135-145) mmol/L Potassium 4.5 (3.5-5.1) mmol/L Chloride 102 (98-107) mmol/L Carbon Dioxide 27 (22-30) mmol/L Anion Gap 14.6 (5-15) MEQ/L BUN 35 H (9-20) mg/dL Creatinine 1.79 H (0.66-1.25) mg/dL Estimated GFR 41.3 ML/MIN Glucose 184 H (74-106) mg/dL POC Glucometer 163 H 139 H (74 to 106) mg/dL Hemoglobin A1c (4.5-6.0) % Lactic Acid (0.4-2.0) Calcium 10.1 (8.4-10.2) mg/dL Total Bilirubin (0.2-1.3) mg/dL AST (17-59) U/L ALT (0-50) U/L Alkaline Phosphatase (38-126) U/L Serum Total Protein (6.3-8.2) g/dL Albumin (3.5-5.0) g/dL Prealbumin (17.6-36.0) mg/dL Lipase (23-300) U/L Urine Color (Yellow) Urine Appearance (Clear) Urine pH (4.6-8.0) Ur Specific Marshall (1.005-1.030) Urine Protein (Negative) Urine Glucose (UA) (Negative) mg/dL Urine Ketones (Negative) Urine Blood (Negative) Urine Nitrite (Negative) Urine Bilirubin (Negative) Urine Urobilinogen (0.2) mg/dL Ur Leukocyte Esterase (Negative) U Hyaline Cast (Auto) (0-2) /LPF Urine Microscopic RBC (0-5) /HPF Urine Microscopic WBC (0-5) /HPF Ur Epithelial Cells (None Seen) /HPF Urine Bacteria (None Seen) /HPF Urine Culture Reflexed (NO) 04/08/25 04/09/25 04/09/25 Range/Units 23:21 01:33 02:50 WBC 8.8 (4.23-9.07) x10^3/uL RBC 4.19 L (4.63-6.08) x10^6/uL Hgb 12.6 L (13.7-17.5) g/dL Hct 37.9 L (40.1-51.0) % MCV 90.5 (79.0-92.2) fL MCH 30.1 (25.7-32.2) pg MCHC 33.2 (32.3-36.5) g/dL RDW 13.5 (11.6-14.4) % Plt Count 230 (163-337) x10^3/uL MPV 10.6 (9.4-12.4) fL Gran % (34.0-67.9) % Immature Gran % (Auto) (0.001-0.429) % Nucleat RBC Rel Count (0.00-0.2) % Eos # (Auto) (0.04-0.54) x10^3/uL Immature Gran # (Auto) (0.001-0.031) x10^3u/L Absolute Lymphs (auto) (1.32-3.57) x10^3/uL Absolute Monos (auto) (0.30-0.82) x10^3/uL Absolute Nucleated RBC (0.00-0.012) x10^3u/L Lymphocytes % (21.8-53.1) % Monocytes % (5.3-12.2) % Eosinophils % (0.8-7.0) % Basophils % (0.2-1.2) % Absolute Granulocytes (1.78-5.38) x10^3/uL Basophils # (0.01-0.08) x10^3/uL pO2/FiO2 Ratio % VBG pH (7.32-7.42) VBG pCO2 at Pat Temp (42-55) mm/Hg VBG pO2 at Pat Temp (25-40) mm/Hg VBG HCO3 (22-28) meq/L VBG O2 Sat (Alex) (95-100) VBG Base Excess (-2.0-2.0) VBG Hemoglobin VBG Carboxyhemoglobin (0.0-6.9) % T HGB POC Potassium (3.5-5.1) Sodium (135-145) mmol/L Potassium (3.5-5.1) mmol/L Chloride (98-107) mmol/L Carbon Dioxide (22-30) mmol/L Anion Gap (5-15) MEQ/L BUN (9-20) mg/dL Creatinine (0.66-1.25) mg/dL Estimated GFR ML/MIN Glucose (74-106) mg/dL POC Glucometer 124 H 143 H (74 to 106) mg/dL Hemoglobin A1c (4.5-6.0) % Lactic Acid (0.4-2.0) Calcium (8.4-10.2) mg/dL Total Bilirubin (0.2-1.3) mg/dL AST (17-59) U/L ALT (0-50) U/L Alkaline Phosphatase (38-126) U/L Serum Total Protein (6.3-8.2) g/dL Albumin (3.5-5.0) g/dL Prealbumin (17.6-36.0) mg/dL Lipase (23-300) U/L Urine Color (Yellow) Urine Appearance (Clear) Urine pH (4.6-8.0) Ur Specific Marshall (1.005-1.030) Urine Protein (Negative) Urine Glucose (UA) (Negative) mg/dL Urine Ketones (Negative) Urine Blood (Negative) Urine Nitrite (Negative) Urine Bilirubin (Negative) Urine Urobilinogen (0.2) mg/dL Ur Leukocyte Esterase (Negative) U Hyaline Cast (Auto) (0-2) /LPF Urine Microscopic RBC (0-5) /HPF Urine Microscopic WBC (0-5) /HPF Ur Epithelial Cells (None Seen) /HPF Urine Bacteria (None Seen) /HPF Urine Culture Reflexed (NO) 04/09/25 04/09/25 04/09/25 Range/Units 02:50 02:58 04:58 WBC (4.23-9.07) x10^3/uL RBC (4.63-6.08) x10^6/uL Hgb (13.7-17.5) g/dL Hct (40.1-51.0) % MCV (79.0-92.2) fL MCH (25.7-32.2) pg MCHC (32.3-36.5) g/dL RDW (11.6-14.4) % Plt Count (163-337) x10^3/uL MPV (9.4-12.4) fL Gran % (34.0-67.9) % Immature Gran % (Auto) (0.001-0.429) % Nucleat RBC Rel Count (0.00-0.2) % Eos # (Auto) (0.04-0.54) x10^3/uL Immature Gran # (Auto) (0.001-0.031) x10^3u/L Absolute Lymphs (auto) (1.32-3.57) x10^3/uL Absolute Monos (auto) (0.30-0.82) x10^3/uL Absolute Nucleated RBC (0.00-0.012) x10^3u/L Lymphocytes % (21.8-53.1) % Monocytes % (5.3-12.2) % Eosinophils % (0.8-7.0) % Basophils % (0.2-1.2) % Absolute Granulocytes (1.78-5.38) x10^3/uL Basophils # (0.01-0.08) x10^3/uL pO2/FiO2 Ratio % VBG pH (7.32-7.42) VBG pCO2 at Pat Temp (42-55) mm/Hg VBG pO2 at Pat Temp (25-40) mm/Hg VBG HCO3 (22-28) meq/L VBG O2 Sat (Alex) (95-100) VBG Base Excess (-2.0-2.0) VBG Hemoglobin VBG Carboxyhemoglobin (0.0-6.9) % T HGB POC Potassium (3.5-5.1) Sodium 138 (135-145) mmol/L Potassium 4.1 (3.5-5.1) mmol/L Chloride 103 (98-107) mmol/L Carbon Dioxide 24 (22-30) mmol/L Anion Gap 15.2 H (5-15) MEQ/L BUN 29 H (9-20) mg/dL Creatinine 1.54 H (0.66-1.25) mg/dL Estimated GFR 49.4 ML/MIN Glucose 146 H (74-106) mg/dL POC Glucometer 142 H 160 H (74 to 106) mg/dL Hemoglobin A1c (4.5-6.0) % Lactic Acid (0.4-2.0) Calcium 9.8 (8.4-10.2) mg/dL Total Bilirubin 1.40 H (0.2-1.3) mg/dL AST 41 (17-59) U/L ALT 50 (0-50) U/L Alkaline Phosphatase 87 (38-126) U/L Serum Total Protein 8.4 H (6.3-8.2) g/dL Albumin 4.7 (3.5-5.0) g/dL Prealbumin 34.14 (17.6-36.0) mg/dL Lipase (23-300) U/L Urine Color (Yellow) Urine Appearance (Clear) Urine pH (4.6-8.0) Ur Specific Marshall (1.005-1.030) Urine Protein (Negative) Urine Glucose (UA) (Negative) mg/dL Urine Ketones (Negative) Urine Blood (Negative) Urine Nitrite (Negative) Urine Bilirubin (Negative) Urine Urobilinogen (0.2) mg/dL Ur Leukocyte Esterase (Negative) U Hyaline Cast (Auto) (0-2) /LPF Urine Microscopic RBC (0-5) /HPF Urine Microscopic WBC (0-5) /HPF Ur Epithelial Cells (None Seen) /HPF Urine Bacteria (None Seen) /HPF Urine Culture Reflexed (NO) 04/09/25 04/09/25 04/09/25 Range/Units 07:06 08:30 08:30 WBC (4.23-9.07) x10^3/uL RBC (4.63-6.08) x10^6/uL Hgb (13.7-17.5) g/dL Hct (40.1-51.0) % MCV (79.0-92.2) fL MCH (25.7-32.2) pg MCHC (32.3-36.5) g/dL RDW (11.6-14.4) % Plt Count (163-337) x10^3/uL MPV (9.4-12.4) fL Gran % (34.0-67.9) % Immature Gran % (Auto) (0.001-0.429) % Nucleat RBC Rel Count (0.00-0.2) % Eos # (Auto) (0.04-0.54) x10^3/uL Immature Gran # (Auto) (0.001-0.031) x10^3u/L Absolute Lymphs (auto) (1.32-3.57) x10^3/uL Absolute Monos (auto) (0.30-0.82) x10^3/uL Absolute Nucleated RBC (0.00-0.012) x10^3u/L Lymphocytes % (21.8-53.1) % Monocytes % (5.3-12.2) % Eosinophils % (0.8-7.0) % Basophils % (0.2-1.2) % Absolute Granulocytes (1.78-5.38) x10^3/uL Basophils # (0.01-0.08) x10^3/uL pO2/FiO2 Ratio % VBG pH (7.32-7.42) VBG pCO2 at Pat Temp (42-55) mm/Hg VBG pO2 at Pat Temp (25-40) mm/Hg VBG HCO3 (22-28) meq/L VBG O2 Sat (Alex) (95-100) VBG Base Excess (-2.0-2.0) VBG Hemoglobin VBG Carboxyhemoglobin (0.0-6.9) % T HGB POC Potassium (3.5-5.1) Sodium 136 (135-145) mmol/L Potassium 4.4 (3.5-5.1) mmol/L Chloride 101 (98-107) mmol/L Carbon Dioxide 25 (22-30) mmol/L Anion Gap 14.3 (5-15) MEQ/L BUN 24 H (9-20) mg/dL Creatinine 1.41 H (0.66-1.25) mg/dL Estimated GFR 55.0 ML/MIN Glucose 207 H (74-106) mg/dL POC Glucometer 183 H (74 to 106) mg/dL Hemoglobin A1c 7.90 H (4.5-6.0) % Lactic Acid (0.4-2.0) Calcium 9.7 (8.4-10.2) mg/dL Total Bilirubin 1.50 H (0.2-1.3) mg/dL AST 46 (17-59) U/L ALT 54 H (0-50) U/L Alkaline Phosphatase 95 (38-126) U/L Serum Total Protein 8.4 H (6.3-8.2) g/dL Albumin 4.7 (3.5-5.0) g/dL Prealbumin (17.6-36.0) mg/dL Lipase (23-300) U/L Urine Color (Yellow) Urine Appearance (Clear) Urine pH (4.6-8.0) Ur Specific Marshall (1.005-1.030) Urine Protein (Negative) Urine Glucose (UA) (Negative) mg/dL Urine Ketones (Negative) Urine Blood (Negative) Urine Nitrite (Negative) Urine Bilirubin (Negative) Urine Urobilinogen (0.2) mg/dL Ur Leukocyte Esterase (Negative) U Hyaline Cast (Auto) (0-2) /LPF Urine Microscopic RBC (0-5) /HPF Urine Microscopic WBC (0-5) /HPF Ur Epithelial Cells (None Seen) /HPF Urine Bacteria (None Seen) /HPF Urine Culture Reflexed (NO) 04/09/25 04/09/25 Range/Units 09:00 11:07 WBC (4.23-9.07) x10^3/uL RBC (4.63-6.08) x10^6/uL Hgb (13.7-17.5) g/dL Hct (40.1-51.0) % MCV (79.0-92.2) fL MCH (25.7-32.2) pg MCHC (32.3-36.5) g/dL RDW (11.6-14.4) % Plt Count (163-337) x10^3/uL MPV (9.4-12.4) fL Gran % (34.0-67.9) % Immature Gran % (Auto) (0.001-0.429) % Nucleat RBC Rel Count (0.00-0.2) % Eos # (Auto) (0.04-0.54) x10^3/uL Immature Gran # (Auto) (0.001-0.031) x10^3u/L Absolute Lymphs (auto) (1.32-3.57) x10^3/uL Absolute Monos (auto) (0.30-0.82) x10^3/uL Absolute Nucleated RBC (0.00-0.012) x10^3u/L Lymphocytes % (21.8-53.1) % Monocytes % (5.3-12.2) % Eosinophils % (0.8-7.0) % Basophils % (0.2-1.2) % Absolute Granulocytes (1.78-5.38) x10^3/uL Basophils # (0.01-0.08) x10^3/uL pO2/FiO2 Ratio % VBG pH (7.32-7.42) VBG pCO2 at Pat Temp (42-55) mm/Hg VBG pO2 at Pat Temp (25-40) mm/Hg VBG HCO3 (22-28) meq/L VBG O2 Sat (Alex) (95-100) VBG Base Excess (-2.0-2.0) VBG Hemoglobin VBG Carboxyhemoglobin (0.0-6.9) % T HGB POC Potassium (3.5-5.1) Sodium (135-145) mmol/L Potassium (3.5-5.1) mmol/L Chloride (98-107) mmol/L Carbon Dioxide (22-30) mmol/L Anion Gap (5-15) MEQ/L BUN (9-20) mg/dL Creatinine (0.66-1.25) mg/dL Estimated GFR ML/MIN Glucose (74-106) mg/dL POC Glucometer 203 H 240 H (74 to 106) mg/dL Hemoglobin A1c (4.5-6.0) % Lactic Acid (0.4-2.0) Calcium (8.4-10.2) mg/dL Total Bilirubin (0.2-1.3) mg/dL AST (17-59) U/L ALT (0-50) U/L Alkaline Phosphatase (38-126) U/L Serum Total Protein (6.3-8.2) g/dL Albumin (3.5-5.0) g/dL Prealbumin (17.6-36.0) mg/dL Lipase (23-300) U/L Urine Color (Yellow) Urine Appearance (Clear) Urine pH (4.6-8.0) Ur Specific Marshall (1.005-1.030) Urine Protein (Negative) Urine Glucose (UA) (Negative) mg/dL Urine Ketones (Negative) Urine Blood (Negative) Urine Nitrite (Negative) Urine Bilirubin (Negative) Urine Urobilinogen (0.2) mg/dL Ur Leukocyte Esterase (Negative) U Hyaline Cast (Auto) (0-2) /LPF Urine Microscopic RBC (0-5) /HPF Urine Microscopic WBC (0-5) /HPF Ur Epithelial Cells (None Seen) /HPF Urine Bacteria (None Seen) /HPF Urine Culture Reflexed (NO) Radiology Exams: Radiology Procedures Category Date Time Status ABDOMEN AND PELVIS W CONTRAST [CT] Stat Exams 04/08/25 13:49 Completed Medications: Medications Generic Name Dose Route Start Last Admin Trade Name Freq PRN Reason Stop Dose Admin Amiodarone HCl 100 mg 04/09/25 10:00 04/09/25 09:57 Amiodarone Hcl 200 Mg Tab PO 05/09/25 09:59 100 mg DAILY GASTON Administration Clopidogrel Bisulfate 75 mg 04/09/25 10:00 04/09/25 09:56 Clopidogrel Bisulfate 75 Mg Tablet PO 05/09/25 09:59 75 mg DAILY GASTON Administration Ergocalciferol 50,000 unit 04/10/25 10:00 Ergocalciferol (Vitamin D2) 50,000 Unit Capsule PO 05/10/25 09:59 Q7D GASTON Famotidine 20 mg 04/09/25 22:00 Famotidine 20 Mg Tablet PO 05/09/25 21:59 HS GASTON Finasteride 5 mg 04/09/25 22:00 Finasteride 5 Mg Tablet PO 05/09/25 21:59 HS GASTON Dextrose/Sodium Chloride 1,000 mls @ 100 mls/hr 04/08/25 16:30 04/09/25 10:16 Dextrose 5% -0.45 Nacl 1000 Ml IV 05/08/25 16:29 150 mls/hr .Q10H GASTON Administration INSULIN REGULAR IN 0.9 % NACL 100 unit in 100 mls @ 10.44 mls/hr 04/08/25 18:25 04/09/25 00:10 Myxredlin 100 Unit/100 Ml Bag IV 05/08/25 18:24 0 unit/kg/hr .[id number] PRN 0 mls/hr HYPERGLYCEMIA Titration Protocol 0.1 UNIT/KG/HR Insulin Glargine 66 unit 04/09/25 10:10 04/09/25 10:48 Insulin Glargine 1 Unit SQ 05/09/25 10:09 66 unit BID GASTON Administration Insulin Human Lispro 0 unit 04/09/25 09:03 04/09/25 09:59 Insulin Lispro 1 Unit SQ 05/09/25 09:02 5 unit UD PRN Administration HYPERGLYCEMIA Linezolid 600 mg 04/09/25 10:00 04/09/25 10:48 Linezolid 600 Mg Tablet PO 05/09/25 09:59 600 mg BID GASTON Administration Miscellaneous Information 0 each 04/09/25 10:30 Medication Intervention 1 Each Each 05/09/25 10:29 .RN TO CHECK WITH PT [facility] Miscellaneous Information 0 each 04/09/25 10:45 Medication Intervention 1 Each Each 05/09/25 10:44 .RN TO CHECK WITH PT [facility] Prochlorperazine Edisylate 10 mg 04/09/25 10:47 Prochlorperazine Edisylate 10 Mg/2 Ml Vial IV 05/09/25 10:46 Q6H PRN PRN NAUSEA/VOMITING Tamsulosin HCl 0.4 mg 04/09/25 10:00 04/09/25 09:57 Tamsulosin Hcl 0.4 Mg Cap PO 05/09/25 09:59 0.4 mg BID GASTON Administration Discontinued Medications Generic Name Dose Route Start Last Admin Trade Name Freq PRN Reason Stop Dose Admin Amiodarone HCl 100 mg 04/09/25 10:00 Amiodarone Hcl 200 Mg Tab PO 05/09/25 09:59 DAILY GASTON Clopidogrel Bisulfate 75 mg 04/09/25 10:00 Clopidogrel Bisulfate 75 Mg Tablet PO 05/09/25 09:59 DAILY [facility] [facility] Sodium Chloride 1,000 mls @ 999 mls/hr 04/08/25 13:48 04/08/25 15:09 Sodium Chloride 0.9% 1000 Ml IV 04/08/25 14:48 Infused .Q1H1M STA Infusion Sodium Chloride Confirm 04/08/25 13:53 Sodium Chloride 0.9% 1000 Ml Administered 04/08/25 13:54 Dose 1,000 mls @ ud .ROUTE .STK-MED ONE INSULIN REGULAR IN 0.9 % NACL Confirm 04/08/25 18:14 Myxredlin 100 Unit/100 Ml Bag Administered 04/08/25 18:15 Dose 100 unit in 100 mls @ ud IV .STK-MED ONE Sodium Chloride 1,000 mls @ 999 mls/hr 04/08/25 21:50 04/08/25 22:02 Sodium Chloride 0.45% 1000 Ml IV 04/08/25 22:50 999 mls/hr .Q1H1M ONE Administration Potassium Chloride 20 meq in 100 mls @ 50 mls/hr 04/08/25 21:52 04/08/25 22:02 Potassium Chloride 20 Meq In Water 100ml IV 04/08/25 23:51 50 mls/hr STAT ONE Administration Insulin Glargine 66 unit 04/08/25 22:00 04/08/25 22:02 Insulin Glargine 1 Unit SQ 04/08/25 22:01 66 unit ONCE ONE Administration Insulin Glargine 66 unit 04/09/25 10:00 Insulin Glargine 1 Unit SQ 05/09/25 09:59 BID GASTON Insulin Human Lispro 0 unit 04/08/25 23:00 Insulin Lispro 1 Unit SQ 05/08/25 22:59 UD PRN HYPERGLYCEMIA Linezolid 600 mg 04/08/25 23:00 04/08/25 23:40 Linezolid 600 Mg Tablet PO 05/08/25 22:59 Not Given BID GASTON Metoclopramide HCl 5 mg 04/09/25 02:14 04/09/25 02:19 Metoclopramide Hcl 10 Mg/2 Ml Vial IV 05/09/25 02:13 5 mg Q6HPRN PRN Administration NAUSEA/VOMITING Morphine Sulfate 2 mg 04/08/25 13:48 04/08/25 13:54 Morphine Sulfate 2 Mg/Ml Inj IV 04/08/25 13:49 2 mg STAT ONE Administration Morphine Sulfate Confirm 04/08/25 13:52 Morphine Sulfate 2 Mg/Ml Inj Administered 04/08/25 13:53 Dose 2 mg .ROUTE .STK-MED ONE Prochlorperazine Edisylate 10 mg 04/08/25 13:48 04/08/25 13:53 Prochlorperazine Edisylate 10 Mg/2 Ml Vial IV 04/08/25 13:49 10 mg STAT ONE Administration Prochlorperazine Edisylate Confirm 04/08/25 13:53 Prochlorperazine Edisylate 10 Mg/2 Ml Vial Administered 04/08/25 13:54 Dose 10 mg .ROUTE .STK-MED ONE Prochlorperazine Edisylate 10 mg 04/08/25 20:25 04/08/25 20:27 Prochlorperazine Edisylate 10 Mg/2 Ml Vial IV 04/08/25 20:26 10 mg STAT ONE Administration Assessment/Plan (1) DKA (diabetic ketoacidosis) Current Visit: Yes Status: Acute Assessment & Plan: -S/p 1L bolus and re-bolus with NS; transitioned to D5NS 150 cc/hr. -Insulin drip stopped following resolution of acidosis and overlap with basal insulin. -Now on Glargine 66 units BID plus lispro with meals and high-dose sliding scale. -Potassium replaced as indicated; ongoing BMP monitoring at 9 PM and 3 AM. -Symptoms improved; acidosis resolved; renal function back to baseline -CMP/CBC reviewed Code(s): E11.10 - TYPE 2 DIABETES MELLITUS WITH KETOACIDOSIS WITHOUT COMA (2) Atrial fibrillation Current Visit: Yes Status: Acute Assessment & Plan: -Continue amiodarone 100 mg daily for rhythm control -Patient states he was on Eliquis previously but was taken off by cardiology for unknown reason Code(s): I48.91 - UNSPECIFIED ATRIAL FIBRILLATION (3) Infection of right great toe due to methicillin resistant Staphylococcus aureus (MRSA) Current Visit: Yes Status: Acute Assessment & Plan: -Recently hospitalized, now followed by Dr. Palafox (Infectious Disease). -Continuing outpatient regimen: linezolid and cefpodoxime -Monitor for clinical improvement of toe cellulitis and systemic symptoms. -Wound care and podiatry follow-up as indicated. Code(s): L08.9 - LOCAL INFECTION OF THE SKIN AND SUBCUTANEOUS TISSUE, UNSP; B95.62 - METHICILLIN RESIS STAPH INFCT CAUSING DISEASES CLASSD ELSWHR (4) Cholelithiasis Current Visit: Yes Status: Acute Assessment & Plan: -Currently asymptomatic; no intervention needed. -Will reassess management if nausea/vomiting recur post-DKA resolution. (5) CAD (coronary artery disease) Current Visit: Yes Status: Acute Assessment & Plan: -Continue Plavix 75 mg daily. -Continue Vascepa 2 mg BID. -Resume Repatha injections every two weeks at home. Code(s): I25.10 - ATHSCL HEART DISEASE OF [place] CORONARY ARTERY W/O ANG PCTRS (6) CKD (chronic kidney disease) Current Visit: Yes Status: Acute Assessment & Plan: -Baseline creatinine around 1.8 currently at 1.41 . -Avoid nephrotoxic agents; renally dose medications as appropriate. -monitor renal/lytes Code(s): N18.9 - CHRONIC KIDNEY DISEASE, UNSPECIFIED (7) Type 2 diabetes mellitus Current Visit: Yes Status: Acute Assessment & Plan: -see DKA above VTE: heparin PPI protonix Dispo: tomorrow Code status: Full code The patient required critical care for acute diabetic ketoacidosis with risk of severe metabolic derangements, electrolyte instability, and hemodynamic compromise. Care included IV fluid resuscitation, insulin infusion with transition to basalbolus therapy, potassium replacement, and serial lab monito ring. Concurrent MRSA infection of the right great toe added complexity and infection risk. Critical care services involved direct management, review of labs and imaging, coordination with nursing and Infectious Disease, and frequent reassessment to prevent clinical deterioration. Total critical care time: 45 minutes (exclusive of separately billable procedures).
[2025-04-09] MEDS: Compazine 10 MG/2 ML IV PRN (12:30)
[2025-04-09] MEDS: PATIENT OWN MEDICATION PO SCH (12:53)
[2025-04-09] MEDS: Proscar 5 MG PO SCH (22:59)
[2025-04-09] MEDS: Pepcid 20 MG PO SCH (22:59)
[2025-04-09] MEDS: HEPARIN 5000 UNITS/0.5 ML (HIGH RISK MED) SQ SCH (23:03)
[2025-04-10 04:33] LABS: BASOPHIL % 0.9 % (0.2-1.2); Basophil (Absolute #) 0.08 x10^3/uL (0.01-0.08); Eosinophil (Absolute #) 0.09 x10^3/uL (0.04-0.54); Hematocrit 34.2 % (40.1-51.0); Hemoglobin 11.6 g/dL (13.7-17.5); IMMATURE GRAN # 0.03 x10^3u/L (0.001-0.031); IMMATURE GRAN % 0.4 % (0.001-0.429); Lymphocyte (Absolute #) 1.54 x10^3/uL (1.32-3.57); Mean Corpuscular Hemoglobin 30.1 pg (25.7-32.2); Mean Corpuscular Hgb Concent. 33.9 g/dL (32.3-36.5); Monocyte (Absolute #) 0.76 x10^3/uL (0.30-0.82); NUCLEATED RBC # 0.00 x10^3u/L (0.00-0.012); NUCLEATED RBC % 0.0 % (0.00-0.2); Platelet Count 197 x10^3/uL (163-337); Red Blood Count 3.85 x10^6/uL (4.63-6.08); White Blood Count 8.5 x10^3/uL (4.23-9.07)
[2025-04-10 04:48] LABS: Calcium 9.4 mg/dL (8.4-10.2); Carbon Dioxide 20.0 mmol/L (22-30); Creatinine 1 1.31 mg/dL (0.66-1.25); EST GLOMERULAR FILTRATION RATE 60.0 ML/MIN; Glucose 127.0 mg/dL (74-106); Potassium 4.0 mmol/L (3.5-5.1); SGOT/AST 40.0 U/L (17-59); SGPT/ALT 48.0 U/L (0-50); Total Protein 7.6 g/dL (6.3-8.2)
[2025-04-10 08:08] VITALS: TEMP 97.4
[2025-04-10] MEDS: VITAMIN D2 PO SCH (08:57)
[2025-04-10] MEDS: HUMALOG SQ SCH (09:16)
[2025-04-10 09:36] VITALS: O2SAT 96
--- NOTE | 2025-04-10 11:19 | PCM.DS ---
Discharge Summary Date of Admission: 04/08/25 20:00 Date of Discharge: 04/10/25 Admitting Physician: STEVENSON WORLEY MD Primary Care Provider: DIMAS PALAFOX Allergies Allergies Spcrddr-[id number]-GdP Reductase Inhibitor Allergy (Verified 04/08/25 13:31) Hospital Summary - Hospital Course Hospital Course: The patient is a 54-year-old male with a history of recurrent diabetic ketoacidosis, paroxysmal atrial fibrillation, coronary artery disease status post-CABG, and recent MRSA infection of the right great toe who was admitted on 04/09/25 with persistent nausea and vomiting after starting linezolid and cefpodoxime. He was found to be in diabetic ketoacidosis and treated with IV fluids and insulin infusion, later transitioned to a basal-bolus regimen once acidosis resolved. His symptoms and renal function improved, and CT imaging incidentally revealed gallstones. During hospitalization, he reported that his home Lantus had been discontinued after a recent admission, contributing to persistently elevated blood glucose levels. By 04/10/25, his DKA and acute kidney injury had resolved, heart rate improved with scheduled medications, and he denied further concerns aside from mild residual nausea. He is stable for discharge home on his insulin regimen and will continue outpatient antibiotics as directed by infectious disease, with follow-up arranged for ongoing management. - Vitals & Intake/Output Vital Signs: Vital Signs Temperature 97.4 F 04/10/25 08:00 Pulse Rate 102 H 04/10/25 10:00 Respiratory Rate 15 04/10/25 10:00 Blood Pressure 121/77 04/10/25 10:00 O2 Sat by Pulse Oximetry 96 04/10/25 09:00 Intake & Output: Intake & Output 04/07/25 04/08/25 04/09/25 04/10/25 11:59 11:59 11:59 11:59 Intake Total 2738 2058 Output Total 2300 1125 Balance 438 933 Weight 98.2 kg - Lab Result Diagrams: 04/10/25 04:25 04/10/25 04:25 Lab Results-Last 24 Hrs: Lab Results-Last 24 Hours 04/09/25 04/09/25 04/09/25 Range/Units 13:02 15:02 17:05 WBC (4.23-9.07) x10^3/uL RBC (4.63-6.08) x10^6/uL Hgb (13.7-17.5) g/dL Hct (40.1-51.0) % MCV (79.0-92.2) fL MCH (25.7-32.2) pg MCHC (32.3-36.5) g/dL RDW (11.6-14.4) % Plt Count (163-337) x10^3/uL MPV (9.4-12.4) fL Gran % (34.0-67.9) % Immature Gran % (Auto) (0.001-0.429) % Nucleat RBC Rel Count (0.00-0.2) % Eos # (Auto) (0.04-0.54) x10^3/uL Immature Gran # (Auto) (0.001-0.031) x10^3u/L Absolute Lymphs (auto) (1.32-3.57) x10^3/uL Absolute Monos (auto) (0.30-0.82) x10^3/uL Absolute Nucleated RBC (0.00-0.012) x10^3u/L Lymphocytes % (21.8-53.1) % Monocytes % (5.3-12.2) % Eosinophils % (0.8-7.0) % Basophils % (0.2-1.2) % Absolute Granulocytes (1.78-5.38) x10^3/uL Basophils # (0.01-0.08) x10^3/uL Sodium (135-145) mmol/L Potassium (3.5-5.1) mmol/L Chloride (98-107) mmol/L Carbon Dioxide (22-30) mmol/L Anion Gap (5-15) MEQ/L BUN (9-20) mg/dL Creatinine (0.66-1.25) mg/dL Estimated GFR ML/MIN Glucose (74-106) mg/dL POC Glucometer 259 H 249 H 145 H (74 to 106) mg/dL Calcium (8.4-10.2) mg/dL Magnesium (1.6-2.3) mg/dL Total Bilirubin (0.2-1.3) mg/dL AST (17-59) U/L ALT (0-50) U/L Alkaline Phosphatase (38-126) U/L Serum Total Protein (6.3-8.2) g/dL Albumin (3.5-5.0) g/dL 04/09/25 04/09/25 04/10/25 Range/Units 19:15 21:49 04:25 WBC 8.5 (4.23-9.07) x10^3/uL RBC 3.85 L (4.63-6.08) x10^6/uL Hgb 11.6 L (13.7-17.5) g/dL Hct 34.2 L (40.1-51.0) % MCV 88.8 (79.0-92.2) fL MCH 30.1 (25.7-32.2) pg MCHC 33.9 (32.3-36.5) g/dL RDW 13.2 (11.6-14.4) % Plt Count 197 (163-337) x10^3/uL MPV 10.5 (9.4-12.4) fL Gran % 70.6 H (34.0-67.9) % Immature Gran % (Auto) 0.4 (0.001-0.429) % Nucleat RBC Rel Count 0.0 (0.00-0.2) % Eos # (Auto) 0.09 (0.04-0.54) x10^3/uL Immature Gran # (Auto) 0.03 (0.001-0.031) x10^3u/L Absolute Lymphs (auto) 1.54 (1.32-3.57) x10^3/uL Absolute Monos (auto) 0.76 (0.30-0.82) x10^3/uL Absolute Nucleated RBC 0.00 (0.00-0.012) x10^3u/L Lymphocytes % 18.1 L (21.8-53.1) % Monocytes % 8.9 (5.3-12.2) % Eosinophils % 1.1 (0.8-7.0) % Basophils % 0.9 (0.2-1.2) % Absolute Granulocytes 6.03 H (1.78-5.38) x10^3/uL Basophils # 0.08 (0.01-0.08) x10^3/uL Sodium (135-145) mmol/L Potassium (3.5-5.1) mmol/L Chloride (98-107) mmol/L Carbon Dioxide (22-30) mmol/L Anion Gap (5-15) MEQ/L BUN (9-20) mg/dL Creatinine (0.66-1.25) mg/dL Estimated GFR ML/MIN Glucose (74-106) mg/dL POC Glucometer 163 H 150 H (74 to 106) mg/dL Calcium (8.4-10.2) mg/dL Magnesium (1.6-2.3) mg/dL Total Bilirubin (0.2-1.3) mg/dL AST (17-59) U/L ALT (0-50) U/L Alkaline Phosphatase (38-126) U/L Serum Total Protein (6.3-8.2) g/dL Albumin (3.5-5.0) g/dL 04/10/25 04/10/25 04/10/25 Range/Units 04:25 04:27 07:20 WBC (4.23-9.07) x10^3/uL RBC (4.63-6.08) x10^6/uL Hgb (13.7-17.5) g/dL Hct (40.1-51.0) % MCV (79.0-92.2) fL MCH (25.7-32.2) pg MCHC (32.3-36.5) g/dL RDW (11.6-14.4) % Plt Count (163-337) x10^3/uL MPV (9.4-12.4) fL Gran % (34.0-67.9) % Immature Gran % (Auto) (0.001-0.429) % Nucleat RBC Rel Count (0.00-0.2) % Eos # (Auto) (0.04-0.54) x10^3/uL Immature Gran # (Auto) (0.001-0.031) x10^3u/L Absolute Lymphs (auto) (1.32-3.57) x10^3/uL Absolute Monos (auto) (0.30-0.82) x10^3/uL Absolute Nucleated RBC (0.00-0.012) x10^3u/L Lymphocytes % (21.8-53.1) % Monocytes % (5.3-12.2) % Eosinophils % (0.8-7.0) % Basophils % (0.2-1.2) % Absolute Granulocytes (1.78-5.38) x10^3/uL Basophils # (0.01-0.08) x10^3/uL Sodium 136 (135-145) mmol/L Potassium 4.0 (3.5-5.1) mmol/L Chloride 105 (98-107) mmol/L Carbon Dioxide 20 L (22-30) mmol/L Anion Gap 13.9 (5-15) MEQ/L BUN 21 H (9-20) mg/dL Creatinine 1.31 H (0.66-1.25) mg/dL Estimated GFR 60.0 ML/MIN Glucose 127 H (74-106) mg/dL POC Glucometer 117 H 136 H (74 to 106) mg/dL Calcium 9.4 (8.4-10.2) mg/dL Magnesium 1.9 (1.6-2.3) mg/dL Total Bilirubin 1.20 (0.2-1.3) mg/dL AST 40 (17-59) U/L ALT 48 (0-50) U/L Alkaline Phosphatase 95 (38-126) U/L Serum Total Protein 7.6 (6.3-8.2) g/dL Albumin 4.3 (3.5-5.0) g/dL Micro Results-Entire Visit: Accuchecks Date 04/10/25 Date 04/10/25 Date 04/09/25 Date 04/09/25 Date 04/09/25 Time 07:36 Time 04:27 Time 21:49 - Radiology Exams Ordered Rad Exams-Entire Visit: Radiology Procedures Category Date Time Status ABDOMEN AND PELVIS W CONTRAST [CT] Stat Exams 04/08/25 13:49 Completed - Procedures and Test Procedures and Tests throughout Hospitalization: Therapy Orders & Screens 04/09/25 07:30 OT Screen per Nursing Assess ONCE Comment: Protocol Order Physician Instructions: Greater than 3 points order OT Admission Screening Reason For Exam: Triggered on Admission Diagnosis: dka Open Wound/Cellutlitis/Pressure Ulcers: Yes Acute Fx/ORIF/Change in wt bearing status: No Severe MUSCULOSKELETAL pain: No ADL Dysfunction: No Acute CVA w/Hemiparesis/Hemiplegia: No Decreased Functional Mobility/Strength: No Sprain/Strain: No Acute Post-op Mobility Dysfunction: No Total Points: 5 PT Screen per Nursing Assess ONCE Comment: Protocol Order Physician Instructions: Greater than 3 points order PT Admission Screenin Reason For Exam: Triggered on Admission Diagnosis: dka Open Wound/Cellutlitis/Pressure Ulcers: Yes Acute Fx/ORIF/Change in wt bearing status: No Severe MUSCULOSKELETAL pain: No ADL Dysfunction: No Acute CVA w/Hemiparesis/Hemiplegia: No Decreased Functional Mobility/Strength: No Sprain/Strain: No Acute Post-op Mobility Dysfunction: No Total Points: 5 04/10/25 04:00 EKG ROUTINE Comment: Diagnosis: dka Discharge Exam General Appearance: no apparent distress, alert Neurologic Exam: alert, oriented x 3, cooperative, normal mood/affect, nml cerebellar function, sensation nml, No motor deficits Eye Exam: PERRL, EOMI, eyes nml inspection Ears, Nose, Throat Exam: normal ENT inspection, pharynx normal, moist mucous membranes Neck Exam: normal inspection, non-tender, supple, full range of motion Respiratory Exam: normal breath sounds, lungs clear, No respiratory distress Cardiovascular Exam: regular rate/rhythm, normal heart sounds Gastrointestinal/Abdomen Exam: soft, No tenderness, No mass Male Genitalia Exam: deferred Rectal Exam: deferred Back Exam: normal inspection, normal range of motion, No CVA tenderness, No vertebral tenderness Extremity Exam: normal inspection, normal range of motion Skin Exam: normal color, warm, dry Wound Assessment: Skin/Wound Assessment Wound/Incision Assessment Start: 04/08/25 21:24 Text: Status: Active Freq: Q6H Protocol: Document 04/10/25 08:00 [facility] (Rec: 04/10/25 08:06 [facility] [id number]) Wound/Incision Assessment Right Medial Toe Wound Assessment Shift Assessment Wound Type Healing wound Wound Stage Non Pressure Wound Dressing Status Dry & Intact Primary Dressing xeroform Secondary Dressing Gauze Roll/Wrap Comment Unable to assess. Dressing remains C/D/I. Wound Photo Photo Taken No Final Diagnosis/Problem List - Final Discharge Diagnosis/Problem (1) DKA (diabetic ketoacidosis) Current Visit: Yes Status: Resolved Assessment & Plan: - Resolved - Home insulin dosing restarted Code(s): E11.10 - TYPE 2 DIABETES MELLITUS WITH KETOACIDOSIS WITHOUT COMA (2) Atrial fibrillation Current Visit: Yes Status: Chronic Assessment & Plan: -Continue amiodarone 100 mg daily for rhythm control -Patient states he was on Eliquis previously but was taken off by cardiology for unknown reason Code(s): I48.91 - UNSPECIFIED ATRIAL FIBRILLATION (3) Infection of right great toe due to methicillin resistant Staphylococcus aureus (MRSA) Current Visit: Yes Status: Chronic Assessment & Plan: -Recently hospitalized, now followed by Dr. Palafox (Infectious Disease). -Continuing outpatient regimen: linezolid and cefpodoxime -Monitor for clinical improvement of toe cellulitis and systemic symptoms. -Wound care and podiatry follow-up as indicated. - CBC, CMP reviewed Code(s): L08.9 - LOCAL INFECTION OF THE SKIN AND SUBCUTANEOUS TISSUE, UNSP; B95.62 - METHICILLIN RESIS STAPH INFCT CAUSING DISEASES CLASSD ELSWHR (4) Cholelithiasis Current Visit: Yes Status: Acute Assessment & Plan: -Currently asymptomatic; no intervention needed. - N/V resolved (5) CAD (coronary artery disease) Current Visit: Yes Status: Chronic Assessment & Plan: -Continue Plavix 75 mg daily. -Continue Vascepa 2 mg BID. -Resume Repatha injections every two weeks at home. Code(s): I25.10 - ATHSCL HEART DISEASE OF [place] CORONARY ARTERY W/O ANG PCTRS (6) CKD (chronic kidney disease) Current Visit: Yes Status: Chronic Assessment & Plan: - At baseline renal function - CMP reviewed Code(s): N18.9 - CHRONIC KIDNEY DISEASE, UNSPECIFIED (7) Type 2 diabetes mellitus Current Visit: Yes Status: Chronic Assessment & Plan: -see DKA above - A1C 7.90- uncontrolled D/C plan of care > 40 minutes - Discharge Discharge Date: 04/10/25 Disposition: Home, Self-Care Condition: Fair Prescriptions: Continue Insulin Glargine [Lantus Insulin] 66 unit SQ BID Insulin Lispro [Humalog] 20 unit SQ BIDWMEALS Amiodarone HCl 200 mg [Cordarone 200 MG] 100 mg PO DAILY Linezolid [Zyvox] 600 mg PO BID Cefpodoxime Proxetil 100 mg PO BID Finasteride 5 mg [Proscar 5 MG] 5 mg PO HS Ergocalciferol (Vitamin D2) [Vitamin D2] 50,000 unit PO Q7D icosapent ethyL [Vascepa] 2 gm PO BID Tamsulosin HCl [Flomax] 0.4 mg PO BID Sodium Polystyrene 15Gm/60 ml* [Kayexylate 15 GM/60 ML] 120 ml PO 2XW Famotidine 20 mg PO HS Evolocumab [Repatha Syringe] 140 mg SQ Q14D Clopidogrel Bisulfate [Plavix] 75 mg PO DAILY Sodium Polystyrene 15Gm/60 ml* [Kayexylate 15 GM/60 ML] 120 ml PO 2XW Instructions: Diabetic ketoacidosis - Discharge instructions Follow up with: DIMAS PALAFOX [Primary Care Provider, INTERNAL MEDICINE] - 04/20/25 1:45 pm DEDE GONZALEZ [NON-STAFF PHY W/O PRIVILEGES, UNKNOWN] - 05/01/25 2:15 pm Referral Note: [id number] [place], [place] Forms: Discharge Instructions
[2025-04-10 11:26] VITALS: PULSE 110
[2025-04-10 11:27] VITALS: BP 121/90; RESP 20
[2025-04-12] MEDS ORDERED: VITAMIN D2 PO SCH (10:00)
== END 2025-04-10 12:10 | disposition home health service (06) ==
LOC: ED 13:10 → ICU 20:00 → INTOOBSV 20:00
PROVIDERS: ADMIT Internal Medicine; ATTEND Internal Medicine
DX: E11.10 Type 2 diabetes mellitus with ketoacidosis without coma (principal); I48.91 Unspecified atrial fibrillation; E11.22 Type 2 diabetes mellitus with diabetic chronic kidney disease; N18.9 Chronic kidney disease, unspecified; K80.20 Calculus of gallbladder without cholecystitis without obstruction; I25.10 Atherosclerotic heart disease of native coronary artery without angina pectoris; Z95.0 Presence of cardiac pacemaker; L08.9 Local infection of the skin and subcutaneous tissue, unspecified; B95.62 Methicillin resistant Staphylococcus aureus infection as the cause of diseases classified elsewhere; Z79.01 Long term (current) use of anticoagulants; Z79.899 Other long term (current) drug therapy; Z86.14 Personal history of Methicillin resistant Staphylococcus aureus infection